=== PATIENT | female | born 1990 | race Caucasian/White ===

== ENCOUNTER 2018-09-17 13:48 | Emergency (ER) | payer MEDICAID, OTHER ==
[~2018-09-17] VITALS: Ht 167.6 cm; Wt 72.7 kg
[~2018-09-17 13:48] MED LIST: CLON-527 PO; LAMO25TA62 PO; RISP0.5T3 PO
[2018-09-17 14:09] VITALS: BP 127/95
[2018-09-17] MEDS ORDERED: buprenorphine/naloxone 2-0.5mg sublingual tablet SL STA (15:16)
== END 2018-09-17 15:37 | disposition home or self-care (01) ==
LOC: ER 13:48
DX: F11.23 Opioid dependence with withdrawal (principal); Z76.0 Encounter for issue of repeat prescription; F12.90 Cannabis use, unspecified, uncomplicated; F15.90 Other stimulant use, unspecified, uncomplicated; Z79.899 Other long term (current) drug therapy
CPT/HCPCS: 99282; 99283

== ENCOUNTER 2018-10-08 17:07 | Emergency (ER) | payer MEDICAID ==
[~2018-10-08] VITALS: Ht 167.6 cm; Wt 75.0 kg
[2018-10-08] MEDS ORDERED: buprenorphine/naloxone 2-0.5mg sublingual tablet SL STA (18:08)
[2018-10-08] MEDS ORDERED: IBUP-1984 PO (19:29)
[2018-10-08] MEDS ORDERED: ONDA4TAB9 SL (19:29)
[2018-10-08] MEDS ORDERED: metoclopramide 10mg tablet PO ONE (19:30)
[2018-10-08] MEDS ORDERED: ibuprofen tablet 400 MG TABLET PO ONE (19:30)
[2018-10-08] MEDS ORDERED: cloNIDine 0.1 mg tablet PO ONE (19:30)
[2018-10-08 19:44] VITALS: BP 123/87
== END 2018-10-08 20:02 | disposition home or self-care (01) ==
LOC: ER 17:09
DX: F11.23 Opioid dependence with withdrawal (principal); F12.90 Cannabis use, unspecified, uncomplicated; F15.90 Other stimulant use, unspecified, uncomplicated; Z79.899 Other long term (current) drug therapy
CPT/HCPCS: 99284; J8597

== ENCOUNTER 2023-01-27 18:41 | Emergency (ER) | payer SELFPAY ==
[~2023-01-27] VITALS: Ht 167.6 cm; Wt 68.2 kg
[~2023-01-27 18:41] MED LIST changes: -RISP0.5T3 PO; +RISP0.5T65 PO
[2023-01-27 18:56] VITALS: BP 128/95
[2023-01-27] MEDS: ondansetron 4mg rapidly disintigrating tab PO ONE (20:02)
[2023-01-27] MEDS: methadone 10mg tablet PO ONE (20:03)
== END 2023-01-27 20:08 | disposition home or self-care (01) ==
LOC: ER 18:42
DX: F11.23 Opioid dependence with withdrawal (principal); I50.9 Heart failure, unspecified; F17.200 Nicotine dependence, unspecified, uncomplicated; Z79.899 Other long term (current) drug therapy
CPT/HCPCS: 99283

== ENCOUNTER 2024-05-22 20:59 | Emergency (ER) | payer MEDICAID ==
[~2024-05-22] VITALS: Ht 167.6 cm; Wt 86.8 kg
[~2024-05-22 20:59] MED LIST changes: -RISP0.5T65 PO; +RISP0.5T80 PO
[2024-05-22 21:04] VITALS: TEMP 98.1
[2024-05-22 21:49] LABS: BASOPHILS % (AUTO) 0.7 % (0-1); EOSINOPHILS # (AUTO) 0.1 X10'3 (0-0.9); EOSINOPHILS % (AUTO) 1.1 % (0-6); HEMATOCRIT 45.8 % (35.0-45.0); HEMOGLOBIN 15.5 g/dl (12.0-16.0); LYMPHOCYTES % (AUTO) 35.6 % (21-51); MEAN CORPUSCULAR HEMOGLOBIN 32.3 PG (27.0-31.0); MEAN CORPUSCULAR HGB CONC 33.7 g/dL (33.0-36.5); MEAN CORPUSCULAR VOLUME 95.7 FL (78-98); MEAN PLATELET VOLUME 8.1 FL (7.4-10.4); MONOCYTES # (AUTO) 0.5 X10'3 (0-0.9); NEUTROPHILS % (AUTO) 53.6 % (42-75); PLATELET COUNT 172 X10'3 (140-440); RED BLOOD COUNT 4.79 X10'6 (4.20-5.60); RED CELL DISTRIBUTION WIDTH 15.3 % (11.5-14.5); WHITE BLOOD COUNT 5.6 X10'3 (4.5-11.0)
[2024-05-22 22:04] LABS: ALBUMIN 3.5 G/DL (3.4-5.0); ANION GAP 6 (8-16); BLOOD UREA NITROGEN 35 MG/DL (7-18); CALCIUM 9.5 MG/DL (8.5-10.1); CHLORIDE 95 MMOL/L (99-107); CREATININE 1.06 MG/DL (0.40-0.90); GLUCOSE 140 MG/DL (70-104); MAGNESIUM 1.9 MG/DL (1.5-2.4); POTASSIUM 3.2 MMOL/L (3.5-5.1); PRO BRAIN NATRIURETIC PEPTIDE 2976 PG/ML (0-125); SODIUM 130 MMOL/L (135-145); TOTAL CARBON DIOXIDE 29.3 MMOL/L (24-32); eCRCL 69 ML/MIN; eGFR 59 ML/MIN
[2024-05-22 22:06] VITALS: BP 105/64; PULSE 81; RESP 15; O2SAT 93
== END 2024-05-22 22:08 | disposition home or self-care (01) ==
LOC: ER 20:59
DX: T40.3X1A Poisoning by methadone, accidental (unintentional), initial encounter (principal); I50.9 Heart failure, unspecified; Z79.899 Other long term (current) drug therapy; Y92.89 Other specified places as the place of occurrence of the external cause
CPT/HCPCS: 36415; 80048; 83735; 83880; 85025; 93005; 99284

== ENCOUNTER 2024-06-21 21:30 | Emergency (ER) | payer MEDICAID ==
[~2024-06-21] VITALS: Ht 167.6 cm; Wt 86.4 kg
[~2024-06-21 21:30] MED LIST changes: +GLECAPREVIR PO SCH; +PIBRENTASVIR PO SCH
[2024-06-21 21:55] LABS: BASOPHILS # (AUTO) 0.1 X10'3 (0-0.2); BASOPHILS % (AUTO) 1.4 % (0-1); EOSINOPHILS # (AUTO) 0.1 X10'3 (0-0.9); EOSINOPHILS % (AUTO) 0.9 % (0-6); LYMPHOCYTES # (AUTO) 1.4 X10'3 (1.1-4.8); LYMPHOCYTES % (AUTO) 24.9 % (21-51); MEAN CORPUSCULAR HEMOGLOBIN 32.9 PG (27.0-31.0); MEAN CORPUSCULAR VOLUME 96.7 FL (78-98); MEAN PLATELET VOLUME 8.2 FL (7.4-10.4); MONOCYTES # (AUTO) 0.4 X10'3 (0-0.9); MONOCYTES % (AUTO) 7.6 % (2-12); NEUTROPHILS # (AUTO) 3.6 X10'3 (1.8-7.7); NEUTROPHILS % (AUTO) 65.2 % (42-75); PLATELET COUNT 172 X10'3 (140-440); RED BLOOD COUNT 4.55 X10'6 (4.20-5.60); RED CELL DISTRIBUTION WIDTH 15.2 % (11.5-14.5); WHITE BLOOD COUNT 5.6 X10'3 (4.5-11.0)
[2024-06-21 22:05] LABS: ALANINE AMINOTRANSFERASE 37 U/L (12-78); ALBUMIN 3.6 G/DL (3.4-5.0); ALBUMIN/GLOBULIN RATIO 0.8 (1.1-1.5); ALKALINE PHOSPHATASE 185 IU/L (46-116); ANION GAP 9 (8-16); ASPARTATE AMINO TRANSFERASE 22 U/L (10-37); BILIRUBIN,TOTAL 1.3 MG/DL (0.1-1.0); BLOOD UREA NITROGEN 30 MG/DL (7-18); BUN/CREATININE RATIO 29.7 (10.0-20.0); CALCIUM 9.4 MG/DL (8.5-10.1); CHLORIDE 100 MMOL/L (99-107); CREATININE 1.01 MG/DL (0.40-0.90); GLUCOSE 90 MG/DL (70-104); SODIUM 136 MMOL/L (135-145); TOTAL CARBON DIOXIDE 27.3 MMOL/L (24-32); eCRCL 73 ML/MIN; eGFR 62 ML/MIN
[2024-06-21 22:13] LABS: PRO BRAIN NATRIURETIC PEPTIDE 1827 PG/ML (0-125)
--- NOTE | 2024-06-22 04:17 | NUR ---
[facility] MED SCREENING COMPLETE. NO OPEN BEDS UNTIL AFTER SHIFT CHANGE.
[2024-06-22] MEDS ORDERED: SILD20TA PO (09:56)
[2024-06-22] MEDS ORDERED: ZAR2.5T PO (09:56)
[2024-06-22] MEDS ORDERED: SALM50DI2 INH (09:56)
[2024-06-22] MEDS ORDERED: BUME1TAB34 PO (09:56)
[2024-06-22] MEDS ORDERED: SPIR50TA5 PO (09:56)
[2024-06-22] MEDS ORDERED: POTA-366 PO (09:56)
[2024-06-22] MEDS ORDERED: METH10OR11 PO (09:56)
[2024-06-22] MEDS ORDERED: ALB0.5UD NEB (09:56)
[2024-06-22] MEDS ORDERED: NALO4SPR5 (09:56)
[2024-06-22] MEDS ORDERED: GLEC1TAB PO (09:56)
[2024-06-22] MEDS ORDERED: EMPA10TA PO (09:56)
[2024-06-22] MEDS ORDERED: DIGO125T PO (09:56)
[2024-06-22] MEDS: methadone 10mg tablet PO SCH (12:05)
[2024-06-22] MEDS: EMPAGLIFLOZIN 10 MG TABLET PO SCH (12:06)
[2024-06-22] MEDS: digoxin 125mcg (0.125mg) tablet PO SCH (12:06)
--- NOTE | 2024-06-22 12:14 | NUR ---
CALLED PHARMACY TO DELIVER THE MEDS FOR PT.
[2024-06-22] MEDS: bumetanide 1mg tablet PO SCH (12:26)
[2024-06-22] MEDS: sildenafil citrate 20mg tablet PO SCH (12:26)
[2024-06-22] MEDS: spironolactone 50 MG tablet PO SCH (12:27)
[2024-06-22] MEDS: albuterol 2.5 MG/3 ML nebule NEB SCH (12:52)
[2024-06-22 12:56] VITALS: PULSE 78; RESP 20; O2SAT 95
[2024-06-22 13:02] VITALS: PULSE 78; RESP 20; O2SAT 96
--- NOTE | 2024-06-22 15:06 | NUR ---
INFORMED DR LAY THAT CHAPLAIN RESIDENT HAS RECECVIVED CALL FROM [facility] AND SPOKE TO TANIA WHO HAS PROVIDED NO OF THE ATTENDING MD WHO CAN BE CONTACTED FOR ANY RECOMMEDENATION NEEDED FOR PATIENT CARE . STATED NOTHING NEEDED AT THIS TIME PT IS STABLE AND RECEVIVED HER MEDS.
--- NOTE | 2024-06-22 16:17 | NUR ---
Paged RT for neb tx.
[2024-06-22 16:43] VITALS: PULSE 85; PULSE 88; RESP 14; RESP 16; O2SAT 100; O2SAT 98
[2024-06-22 16:56] VITALS: TEMP 97.7
--- NOTE | 2024-06-22 18:57 | NUR ---
VERBAL ORDER GHIVEN BY DR. MORELAND FOR PATIENT HOME MEDICATION OF GLECAPREVIR/PIBRENTASVIR 100/40MG X 3 UNITS TO BE GIVEN ONE TIME ON 06/22 AT 1999.
--- NOTE | 2024-06-22 19:24 | NUR ---
REPORT ATTEMPTED TO [facility], NURSE UNAVAILABLE AT THIS TIME AND WILL CALL BACK.
[2024-06-22] MEDS: SALMETEROL XINAFOATE IH SCH (19:29)
[2024-06-22] MEDS: potassium Cl 20 mEq SR tablet PO SCH (19:30)
--- NOTE | 2024-06-22 19:35 | NUR ---
VERBAL ORDER GIVEN BY DR. MORELAND FOR 20MG PO SILDENAFIL TO BE GIVEN ONCE FOR NOW.
[2024-06-22] MEDS: PIBRENTASVIR PO SCH (19:38)
[2024-06-22] MEDS: GLECAPREVIR PO SCH (19:38)
[2024-06-22] MEDS: sildenafil citrate 20mg tablet PO ONE (19:43)
[2024-06-22 19:55] VITALS: BP 116/75; PULSE 88; RESP 15; O2SAT 96
[2024-06-22] MEDS ORDERED: GLECAPREVIR PO SCH (20:00)
[2024-06-22] MEDS ORDERED: PIBRENTASVIR PO SCH (20:00)
[2024-06-23] MEDS ORDERED: metolazone 2.5mg tablet PO SCH (08:00)
== END 2024-06-22 20:00 | disposition hospice, inpatient (51) ==
LOC: ER 21:30
DX: I50.9 Heart failure, unspecified (principal); I42.8 Other cardiomyopathies; Z79.899 Other long term (current) drug therapy
CPT/HCPCS: 36415; 71045; 80053; 83880; 84484; 85025; 93005; 94640; 94760; 99285; A4615

== ENCOUNTER 2024-10-01 10:57 | Emergency (ER) | payer MEDICAID ==
[~2024-10-01] VITALS: Ht 165.1 cm; Wt 88.4 kg
[~2024-10-01 10:57] MED LIST changes: +ALB0.5UD NEB; +BUME1TAB34 PO; -CLON-527 PO; +DIGO125T PO; +EMPA10TA PO; +GLEC1TAB PO; -GLECAPREVIR PO SCH; -LAMO25TA62 PO; +METH10OR11 PO; +NALO4SPR22; -PIBRENTASVIR PO SCH; +POTA-366 PO; -RISP0.5T80 PO; +SALM50DI2 INH; +SILD20TA PO; +SPIR50TA5 PO; +ZAR2.5T PO
[2024-10-01 11:00] VITALS: BP 136/85; PULSE 71; RESP 16; TEMP 98.8; O2SAT 97
[2024-10-01] MEDS: methadone 10mg tablet PO ONE (11:32)
== END 2024-10-01 11:36 | disposition home or self-care (01) ==
LOC: ER 10:57
DX: F11.20 Opioid dependence, uncomplicated (principal); I50.9 Heart failure, unspecified; Z79.899 Other long term (current) drug therapy; Z76.0 Encounter for issue of repeat prescription
CPT/HCPCS: 99283

== ENCOUNTER 2024-12-09 19:39 | Emergency (ER) | payer MEDICAID ==
[~2024-12-09] VITALS: Ht 165.1 cm; Wt 90.0 kg
[2024-12-09 19:47] VITALS: TEMP 98.8
[2024-12-09 20:36] LABS: BASOPHILS % (AUTO) 0.8 % (0-1); EOSINOPHILS # (AUTO) 0.2 X10'3 (0-0.9); EOSINOPHILS % (AUTO) 4.8 % (0-6); HEMOGLOBIN 14.2 g/dl (12.0-16.0); LYMPHOCYTES # (AUTO) 0.6 X10'3 (1.1-4.8); LYMPHOCYTES % (AUTO) 17.6 % (21-51); MEAN CORPUSCULAR HEMOGLOBIN 33.7 PG (27.0-31.0); MEAN CORPUSCULAR HGB CONC 34.5 g/dL (33.0-36.5); MEAN CORPUSCULAR VOLUME 97.7 FL (78-98); MEAN PLATELET VOLUME 8.7 FL (7.4-10.4); MONOCYTES # (AUTO) 0.2 X10'3 (0-0.9); MONOCYTES % (AUTO) 6.3 % (2-12); NEUTROPHILS # (AUTO) 2.5 X10'3 (1.8-7.7); NEUTROPHILS % (AUTO) 70.5 % (42-75); PLATELET COUNT 230 X10'3 (140-440); RED CELL DISTRIBUTION WIDTH 13.3 % (11.5-14.5); WHITE BLOOD COUNT 3.6 X10'3 (4.5-11.0)
[2024-12-09 20:59] LABS: ALANINE AMINOTRANSFERASE 32 U/L (12-78); ALBUMIN 4.6 G/DL (3.4-5.0); ALBUMIN/GLOBULIN RATIO 1.3 (1.1-1.5); ALKALINE PHOSPHATASE 84 IU/L (46-116); ANION GAP 8 (8-16); ASPARTATE AMINO TRANSFERASE 24 U/L (10-37); BILIRUBIN,TOTAL 0.7 MG/DL (0.1-1.0); BLOOD UREA NITROGEN 36 MG/DL (7-18); BUN/CREATININE RATIO 25.9 (10.0-20.0); CALCIUM 9.5 MG/DL (8.5-10.1); CHLORIDE 102 MMOL/L (99-107); CREATININE 1.39 MG/DL (0.40-0.90); GLUCOSE 110 MG/DL (70-104); POTASSIUM 4.8 MMOL/L (3.5-5.1); SODIUM 138 MMOL/L (135-145); TOTAL PROTEIN 8.2 G/DL (6.4-8.2); eCRCL 51 ML/MIN; eGFR 43 ML/MIN
[2024-12-09] MEDS: ondansetron 4mg rapidly disintigrating tab PO ONE (20:59)
[2024-12-09 21:10] LABS: PRO BRAIN NATRIURETIC PEPTIDE 655 PG/ML (0-125)
[2024-12-09] MEDS ORDERED: TIOT18CA3 INH (21:20)
[2024-12-09] MEDS ORDERED: PRAV20TA4 PO (21:20)
[2024-12-09] MEDS ORDERED: MECO10005 PO (21:20)
[2024-12-09] MEDS ORDERED: PROP10TA10 PO (21:20)
[2024-12-09] MEDS ORDERED: CHOL10006 PO (21:20)
[2024-12-09] MEDS ORDERED: ALEN70TA19 PO (21:20)
[2024-12-09] MEDS ORDERED: MAGN400T39 PO (21:20)
[2024-12-09] MEDS ORDERED: COLC0.6C3 PO (21:20)
[2024-12-09] MEDS ORDERED: CHOL20004 PO (21:20)
[2024-12-09] MEDS ORDERED: VALG450T13 PO (21:20)
[2024-12-09] MEDS ORDERED: MYCO250C46 PO (21:20)
[2024-12-09] MEDS ORDERED: LOSA-415 PO (21:20)
[2024-12-09] MEDS ORDERED: OMEP20TA23 PO (21:20)
[2024-12-09] MEDS ORDERED: CALC300T4 PO (21:20)
[2024-12-09] MEDS ORDERED: PRED5TAB PO (21:20)
[2024-12-09] MEDS ORDERED: ASPI-1071 PO (21:20)
[2024-12-09] MEDS ORDERED: SULF1TAB49 PO (21:20)
[2024-12-09] MEDS ORDERED: MULT-1249 PO (21:20)
[2024-12-09] MEDS ORDERED: ISAV186C2 PO (21:20)
[2024-12-09] MEDS ORDERED: TACR1CAP2 PO (21:20)
[2024-12-09 21:49] VITALS: BP 100/69; PULSE 69; RESP 14; O2SAT 94
== END 2024-12-09 21:52 | disposition home or self-care (01) ==
LOC: ER 19:40
DX: R07.89 Other chest pain (principal); F41.9 Anxiety disorder, unspecified; Z79.899 Other long term (current) drug therapy
CPT/HCPCS: 71045; 80053; 83880; 84484; 85025; 93005; 99285

== ENCOUNTER 2025-03-08 20:08 | Emergency (ER) | payer MEDICAID ==
[~2025-03-08] VITALS: Ht 162.6 cm; Wt 74.5 kg
[~2025-03-08 20:08] MED LIST changes: +ALEN70TA19 PO; +ASPI-1071 PO; +CALC300T4 PO; +CHOL10006 PO; +CHOL20004 PO; +COLC0.6C3 PO; -DIGO125T PO; -EMPA10TA PO; -GLEC1TAB PO; +ISAV186C2 PO; +LOSA-415 PO; +MAGN400T39 PO; +MECO10005 PO; +MULT-1249 PO; +MYCO250C46 PO; +OMEP20TA23 PO; +PRAV20TA4 PO; +PRED5TAB PO; +PROP10TA10 PO; -SILD20TA PO; -SPIR50TA5 PO; +SULF1TAB49 PO; +TACR1CAP2 PO; +TIOT18CA3 INH; +VALG450T13 PO
[2025-03-08 20:29] VITALS: TEMP 96.8
[2025-03-08 21:09] LABS: BASOPHILS % (AUTO) 0.7 % (0-1); EOSINOPHILS % (AUTO) 0.6 % (0-6); HEMOGLOBIN 11.5 g/dl (12.0-16.0); LYMPHOCYTES # (AUTO) 0.6 X10'3 (1.1-4.8); LYMPHOCYTES % (AUTO) 13.4 % (21-51); MEAN CORPUSCULAR HEMOGLOBIN 34.1 PG (27.0-31.0); MEAN CORPUSCULAR HGB CONC 34.8 g/dL (33.0-36.5); MEAN CORPUSCULAR VOLUME 97.9 FL (78-98); MEAN PLATELET VOLUME 8.5 FL (7.4-10.4); MONOCYTES # (AUTO) 0.3 X10'3 (0-0.9); MONOCYTES % (AUTO) 6.9 % (2-12); NEUTROPHILS # (AUTO) 3.3 X10'3 (1.8-7.7); NEUTROPHILS % (AUTO) 78.4 % (42-75); PLATELET COUNT 179 X10'3 (140-440); RED BLOOD COUNT 3.37 X10'6 (4.20-5.60); RED CELL DISTRIBUTION WIDTH 15.6 % (11.5-14.5); WHITE BLOOD COUNT 4.3 X10'3 (4.5-11.0)
[2025-03-08 21:24] LABS: ALBUMIN 3.7 G/DL (3.4-5.0); ANION GAP 9 (8-16); BLOOD UREA NITROGEN 18 MG/DL (7-18); BUN/CREATININE RATIO 15.4 (10.0-20.0); CALCIUM 8.9 MG/DL (8.5-10.1); CHLORIDE 106 MMOL/L (99-107); CREATININE 1.17 MG/DL (0.40-0.90); GLUCOSE 103 MG/DL (70-104); POTASSIUM 4.3 MMOL/L (3.5-5.1); SODIUM 141 MMOL/L (135-145); TOTAL CARBON DIOXIDE 26.5 MMOL/L (24-32); eCRCL 58 ML/MIN; eGFR 53 ML/MIN
--- NOTE | 2025-03-08 21:30 | RADIOLOGY REPORT ---
Clinical History sepsis Comparison None Without Contrast KALE BLOUNT, [id number] Technique: Single view PA upright chest x-ray Findings: The lungs are unremarkable. No pleural abnormality. Surgical changes related to previous sternotomy. The cardiomediastinal silhouette is otherwise unrem arkable for an AP view. No acute osseous abnormality. The imaged part of the upper abdomen is unremarkable. Impression: No evidence of acute cardiopulmonary disease This report was electronically signed by Gene Torres MD on 03/08/2025 9:26:41 PM.
[2025-03-08 23:46] LABS: BILIRUBIN,URINE NEGATIVE (Neg); CLARITY,URINE CLEAR (Clear); COLOR,URINE YELLOW (Yellow); GLUCOSE, URINE NEGATIVE (Neg); KETONES,URINE TRACE mg/dl (Neg); LEUKOCYTE ESTERASE ,URINE NEGATIVE (Neg); NITRITES, URINE NEGATIVE (Neg); OCCULT BLOOD,URINE NEGATIVE (Neg); PROTEIN,URINE NEGATIVE (Neg); UROBILINOGEN,URINE 0.2 E.U/dL (0.2-1.0)
[2025-03-08 23:47] LABS: UA COLLECTION TYPE CLN CATCH MIDSTREAM
--- NOTE | 2025-03-09 01:06 | Physician Documentation ---
History of Present Illness ~ Chief Complaint: Wound Stated Complaint: LEG PAIN Time Seen by MD: 00:26 Primary Medical Doctor: raheem baugh HPI Patient presents to the emergency room with concerns for infection to her right leg. She was seen by her primary care doctor a few days ago where a needle aspiration was performed with no purulence. Since that time the wound itself has possibly improved or unchanged but there begins to be some surrounding erythema with warmness to touch. Tetanus reported to be up-to-date. No fevers Tetanus within 5 years?: No Medication Reconciliation Allergies: Coded Allergies: No Known Allergies (Unverified , 03/08/25) Scheduled Albuterol Sulfate Nebs* (Proventil Nebs*), 1 VIAL NEB Q4H, (Reported) Alendronate Sodium (Fosamax), 1 TAB PO Q7D, (Reported) Aspirin (Ecotrin*), 1 TAB PO DAILY, (Reported) Bumetanide (Bumetanide), 4 TAB PO BID, (Reported) Calcium Carbonate* (Tums*), 1 TAB PO DAILY, (Reported) Cholecalciferol (Vitamin D), 1 CAP PO DAILY, (Reported) Cholecalciferol (Vitamin D), 2 TAB PO DAILY, (Reported) Colchicine (Colchicine), 0.5 CAP PO DAILY, (Reported) Isavuconazonium Sulfate (Cresemba), 2 TAB PO QAM, (Reported) Losartan Potassium* (Cozaar*), 1 TAB PO QAM, (Reported) Magnesium Oxide (Magnesium), 2 TAB PO TID, (Reported) Mecobalamin (B12 Active), 1 TAB PO DAILY, (Reported) Methadone Hcl (Methadone), 80 MG PO DAILY, (Reported) Multivitamin (Multivitamin), 1 TAB PO DAILY, (Reported) Mycophenolate Mofetil (Cellcept), 3 CAP PO Q12H, (Reported) Omeprazole Magnesium (Prilosec Otc), 1 TAB PO DAILY, (Reported) Potassium Chloride (Potassium Chloride), 2 TAB PO QAM, (Reported) Pravastatin Sodium (Pravastatin Sodium), 1 TAB PO DAILY, (Reported) Prednisone* (Prednisone*), 2 TAB PO DAILY, (Reported) Propranolol Hcl* (Inderal*), 1 TAB PO TID, (Reported) Salmeterol Xinafoate* (Serevent Diskus*), 1 PUFFS INH Q12H, (Reported) Sulfamethoxazole/Trimethoprim (Bactrim Ds Tablet), 1 TAB PO MWF, (Reported) Tacrolimus (Prograf), 1.5 CAP PO Q12H, (Reported) Tiotropium [place] (Spiriva), 1 CAP INH DAILY, (Reported) Valganciclovir Hcl (Valcyte), 1 TAB PO Q12H, (Reported) Scheduled PRN Metolazone (ZAROXOLYN tablet), 1 TAB PO DAILY PRN for Per Protocol, (Reported) Naloxone HCl (Naloxone HCl), PRN PRN for resp rate < 8/min or SBP < 90, (Reported) Past Medical History Past Medical History: No Pertinent History, Congestive Heart Failure, Endocarditis, Hepatitis C Past Surgical History: no surgical history Alcohol Use: None Drug Use: none Occupation: employed Review of Systems ROS All review of systems negative except as per HPI Physical Exam Vital Signs: Temperature: 96.8, Source: Temporal, Heart Rate: 72, Respiratory Rate: 19, BP: 134/77, Pulse Oximetry: 97, Weight: 74.500 Oxygen Flow Rate: 0 Physical Exam General: Patient is awake, alert, oriented x4 in no acute distress and well appearing.~ Head: Normocephalic and atraumatic. Eyes: Conjunctival normal. EOMI. PERRL. ENT: Mucous membranes moist. Neck: Supple, trachea is midline. Chest: Clear to auscultation bilaterally without rales, rhonchi, or wheezes. There is no accessory muscle use or retractions. Cardiac: RRR without murmurs, gallops, or rubs. Abd: Soft, nondistended, nontender, with normoactive bowel sounds. No guarding, rebound, or rigidity. Extremities: 3 x 3 cm fluctuant lesion on medial aspect of patient's right ankle with surrounding cellulitis measuring 10 cm by 10 cm Procedures Procedures Incision and drainage: . Status post informed verbal consent patient was sterilely cleaned and draped a 11. Blade utilized perform a 1 cm incision into area of concern with no purulent drainage. Patient was anesthetized with 0.5 cc of lidocaine with epinephrine. Patient tolerated procedure well without complication. Total time of procedure 5 minutes Progress Results/Orders Results/Orders Vital Signs 03/08/25 03/08/25 20:29 23:54 Temp 96.8 Pulse 83 72 Resp 15 19 B/P (MAP) 120/68 134/77 (96) Pulse Ox 96 97 O2 Flow Rate 0 Laboratory Tests Test 03/08/25 20:41 03/08/25 23:39 White Blood Count 4.3 L Red Blood Count 3.37 L Hemoglobin 11.5 L Hematocrit 33.0 L Mean Corpuscular Volume 97.9 Mean Corpuscular Hemoglobin 34.1 H Mean Corpuscular Hemoglobin Concent 34.8 Red Cell Distribution Width 15.6 H Platelet Count 179 Mean Platelet Volume 8.5 Neutrophils (%) (Auto) 78.4 H Lymphocytes (%) (Auto) 13.4 L Monocytes (%) (Auto) 6.9 Eosinophils (%) (Auto) 0.6 Basophils (%) (Auto) 0.7 Neutrophils # (Auto) 3.3 Lymphocytes # (Auto) 0.6 L Monocytes # (Auto) 0.3 Eosinophils # (Auto) 0.0 Basophils # (Auto) 0.0 CBC Comment Sodium Level 141 Potassium Level 4.3 Chloride Level 106 Carbon Dioxide Level 26.5 Anion Gap 9 Blood Urea Nitrogen 18 Creatinine 1.17 H Estimated GFR/1.73 m2 53 BUN/Creatinine Ratio 15.4 Glucose Level 103 Lactic Acid Level 0.8 Calcium Level 8.9 Albumin 3.7 Procalcitonin < 0.05 Chemistry Comments Urine Specimen Description Cln catch midstream Urine Color Yellow Urine Clarity Clear Urine pH 6.0 Urine Specific [place] 1.020 Urine Protein Negative Urine Glucose (UA) Negative Urine Ketones Trace H Urine Occult Blood Negative Urine Nitrite Negative Urine Bilirubin Negative Urine Urobilinogen 0.2 Urine Leukocyte Esterase Negative Urine Culture Indicated Not ind Volume Urine Centrifuged 10 ml Urine Comment Microbiology Date/Time Source Procedure Growth Status 03/08/25 20:41 Blood Arm Right Blood Culture - Preliminary NEGATIVE (LESS THAN 24 HOURS) Resulted Medical Decision Making Findings Patient presents to the emergency room with wound to leg as per HPI. Differentials include but are not limited to abscess, cellulitis, DVT, hematoma. Symptoms inconsistent with DVT and he had not feel she requires an ultrasound. Incision and drainage failed to produce purulent drainage. [place] cellulitis noted him and we will treat her as such Departure Disposition: 01 HOME / SELF CARE / HOMELESS Impression: Primary Impression: Wound cellulitis Condition: Stable Discharge Instructions: Cellulitis, Adult, [id number] Additional Instructions: Finish all the antibiotics. Return for worsening of symptoms Referrals: NO PRIMARY CARE PROVIDER (PCP) Prescriptions Cephalexin*Monohydrate* (Keflex*) 500 Mg Capsule 1 CAP PO Q8H for 10 Days, #30 CAP Prov: VICTOR HUGO VARGAS MD 03/09/25 Education Educated: Patient Educated regarding: diagnosis, treatment, need for follow up Signature Scribe Signature: No scribe Attestation: The note accurately reflects work and decisions made by me.Victor Hugo Vargas MD 03/09/25 01:25 VICTOR HUGO VARGAS MD March 09, 2025 01:06
[2025-03-09] MEDS ORDERED: CEPH-585 PO (01:25)
[2025-03-09] MEDS: bacitracin 15gm ointment TP ONE (01:56)
[2025-03-09] MEDS: cephalexin 250mg capsule PO ONE (01:57)
[2025-03-09 02:05] VITALS: BP 132/88; PULSE 74; RESP 18; O2SAT 98
== END 2025-03-09 02:02 | disposition home or self-care (01) ==
LOC: ER 20:09
DX: L03.115 Cellulitis of right lower limb (principal)
CPT/HCPCS: 10060; 36415; 71045; 80048; 81003; 83605; 84145; 85025; 87040; 99284; A6407; A6449

== ENCOUNTER 2025-03-19 10:24 | Emergency (ER) | payer MEDICAID ==
[~2025-03-19] VITALS: Ht 165.1 cm; Wt 87.6 kg
[~2025-03-19 10:24] MED LIST changes: +CEPH-585 PO
--- NOTE | 2025-03-19 14:51 | ELECTROCARDIOGRAPH REPORT ---
[facility] Test Date: 2025-03-19 Test Time: 14:49:23 Pat Name: KALE BLOUNT Department: [facility]- Patient ID: [facility]-[id number] Room: Gender: F Grinder Set Up Operator External: : 1990 Requested By: HAKEEM PUCKETT Order Number: [id number] Reading MD: Dr. Benji De La Paz Measurements Intervals [place] Rate: 68 P: 49 UT: 156 QRS: 51 QRSD: 97 T: 50 QT: 484 QTc: 515 Interpretive Statements Sinus rhythm Borderline T abnormalities, anterior leads Prolonged QT interval Electronically Signed On 03-25-2025 13:45:[address] Benji De La Paz Please click the below link to view image of tracing.
--- NOTE | 2025-03-19 15:14 | RADIOLOGY REPORT ---
CHEST RADIOGRAPH Indication: sepsis Technique: Single frontal view of the chest was obtained Comparison: DI CHEST,SINGLE VIEW on DOS: 03/08/25, DI CHEST,SINGLE VIEW on DOS: 12/09/24, DI CHEST,SING LE VIEW on DOS: 06/21/24 FINDINGS: Lines and Tubes: None Lungs: No focal consolidation. Mild elevation of the right hemidiaphragm. Midline sternotomy wires ar e noted. Pleura: No effusion. No pneumothorax. Cardiomediastinal contours: Unremarkable Bones: No acute osseous abnormality. IMPRESSION: No acute cardiopulmonary disease.
[2025-03-19 15:18] LABS: BASOPHILS % (AUTO) 0.7 % (0-1); HEMATOCRIT 33.6 % (35.0-45.0); HEMOGLOBIN 11.5 g/dl (12.0-16.0); LYMPHOCYTES # (AUTO) 0.4 X10'3 (1.1-4.8); MEAN CORPUSCULAR HEMOGLOBIN 33.4 PG (27.0-31.0); MEAN CORPUSCULAR HGB CONC 34.4 g/dL (33.0-36.5); MEAN CORPUSCULAR VOLUME 97.2 FL (78-98); MEAN PLATELET VOLUME 8.3 FL (7.4-10.4); MONOCYTES # (AUTO) 0.2 X10'3 (0-0.9); MONOCYTES % (AUTO) 7.6 % (2-12); NEUTROPHILS # (AUTO) 2.4 X10'3 (1.8-7.7); NEUTROPHILS % (AUTO) 76.7 % (42-75); PLATELET COUNT 200 X10'3 (140-440); RED BLOOD COUNT 3.46 X10'6 (4.20-5.60); RED CELL DISTRIBUTION WIDTH 14.6 % (11.5-14.5); WHITE BLOOD COUNT 3.2 X10'3 (4.5-11.0)
[2025-03-19 15:31] LABS: ALANINE AMINOTRANSFERASE 30 U/L (12-78); ALBUMIN 3.5 G/DL (3.4-5.0); ALKALINE PHOSPHATASE 169 IU/L (46-116); ANION GAP 6 (8-16); ASPARTATE AMINO TRANSFERASE 26 U/L (10-37); BILIRUBIN,TOTAL 0.6 MG/DL (0.1-1.0); BLOOD UREA NITROGEN 20 MG/DL (7-18); CHLORIDE 103 MMOL/L (99-107); CREATININE 1.43 MG/DL (0.40-0.90); GLUCOSE 96 MG/DL (70-104); HCG SERUM QL NEGATIVE; POTASSIUM 4.7 MMOL/L (3.5-5.1); SODIUM 138 MMOL/L (135-145); TOTAL PROTEIN 7.1 G/DL (6.4-8.2); eCRCL 49 ML/MIN; eGFR 42 ML/MIN
[2025-03-19] MEDS ORDERED: iohexol 300mg/ml 100ml inj. ONE (15:33)
[2025-03-19 16:06] LABS: APTT 27 SECONDS (22-32); INR 1.1 INR; PROTHROMBIN TIME 10.9 SECONDS (9.0-12.0)
[2025-03-19 16:48] LABS: BILIRUBIN,URINE NEGATIVE (Neg); CLARITY,URINE CLEAR (Clear); COLOR,URINE YELLOW (Yellow); GLUCOSE, URINE NEGATIVE (Neg); KETONES,URINE NEGATIVE (Neg); LEUKOCYTE ESTERASE ,URINE NEGATIVE (Neg); NITRITES, URINE NEGATIVE (Neg); OCCULT BLOOD,URINE NEGATIVE (Neg); PH,URINE 5.5 (4.8-8.0); PROTEIN,URINE NEGATIVE (Neg); UA COLLECTION TYPE CLN CATCH MIDSTREAM; UROBILINOGEN,URINE 0.2 E.U/dL (0.2-1.0)
--- NOTE | 2025-03-19 18:52 | RADIOLOGY REPORT ---
INDICATION: cellulitis lower leg COMPARISON: None TECHNIQUE: CT of the right lower extremity was performed with contrast. Volume transverse images were obtained and reconstructed in multiple planes using bone and soft tissue algorithms. Radiation Dose Information: CT Dose: CTDI volume is 7.6 mGy. Dose-length product is 358 mGy*cm 100 mL of Omni 300 was injected. FINDINGS: The alignment is normal. The joint spaces are normal. There is no fracture, dislocation or aggressive osseous lesion. There is no joint effusion. Superficial fat stranding and skin thickening is seen in the posterior lower leg suggestive of cellul itis. No discernible abscess identified. IMPRESSION: 1. Superficial fat stranding and skin thickening is seen in the posterior lower leg suggestive of chris lulitis. No discernible abscess identified. 2. No acute fracture or dislocation. 3. All CT scans at this medical facility are performed using dose modulation techniques as appropriat e to a performed exam including the following: Automated exposure control was utilized; adjustment of the MA and/or KV according to patient size; and use of iterative reconstruction technique.
--- NOTE | 2025-03-19 19:31 | Physician Documentation ---
History of Present Illness ~ Chief Complaint: Leg Pain Stated Complaint: CELLULITIS R LEG Time Seen by MD: 13:23 Primary Medical Doctor: raheem baugh Mode of Arrival: POV HPI 4-year-old female reports a chief complaint of right leg pain. Patient has a history of a heart replacement within last six months. Patient is currently not on blood thinners. Patient has sustained a hematoma to her right lower extremity and had a I and D performed of it is within last month. Patient is presenting today with increased swelling and mild pain to the right leg. Pain isn't into the calf patient states that the pain is superficial and is located to the distal 3rd over the hematoma was. Currently denies shortness breath difficulty breathing or chest pain. Currently not taking any medications therapy has been in symptoms. No other complaints at this time Tetanus witin 5 years: Yes Medication Reconciliation Allergies: Coded Allergies: No Known Allergies (Unverified , 03/08/25) Scheduled Albuterol Sulfate Nebs* (Proventil Nebs*), 1 VIAL NEB Q4H, (Reported) Alendronate Sodium (Fosamax), 1 TAB PO Q7D, (Reported) Aspirin (Ecotrin*), 1 TAB PO DAILY, (Reported) Bumetanide (Bumetanide), 4 TAB PO BID, (Reported) Calcium Carbonate* (Tums*), 1 TAB PO DAILY, (Reported) Cephalexin*Monohydrate* (Keflex*), 1 CAP PO Q8H Cholecalciferol (Vitamin D), 1 CAP PO DAILY, (Reported) Cholecalciferol (Vitamin D), 2 TAB PO DAILY, (Reported) Colchicine (Colchicine), 0.5 CAP PO DAILY, (Reported) Isavuconazonium Sulfate (Cresemba), 2 TAB PO QAM, (Reported) Losartan Potassium* (Cozaar*), 1 TAB PO QAM, (Reported) Magnesium Oxide (Magnesium), 2 TAB PO TID, (Reported) Mecobalamin (B12 Active), 1 TAB PO DAILY, (Reported) Methadone Hcl (Methadone), 80 MG PO DAILY, (Reported) Multivitamin (Multivitamin), 1 TAB PO DAILY, (Reported) Mycophenolate Mofetil (Cellcept), 3 CAP PO Q12H, (Reported) Omeprazole Magnesium (Prilosec Otc), 1 TAB PO DAILY, (Reported) Potassium Chloride (Potassium Chloride), 2 TAB PO QAM, (Reported) Pravastatin Sodium (Pravastatin Sodium), 1 TAB PO DAILY, (Reported) Prednisone* (Prednisone*), 2 TAB PO DAILY, (Reported) Propranolol Hcl* (Inderal*), 1 TAB PO TID, (Reported) Salmeterol Xinafoate* (Serevent Diskus*), 1 PUFFS INH Q12H, (Reported) Sulfamethoxazole/Trimethoprim (Bactrim Ds Tablet), 1 TAB PO MWF, (Reported) Tacrolimus (Prograf), 1.5 CAP PO Q12H, (Reported) Tiotropium [place] (Spiriva), 1 CAP INH DAILY, (Reported) Valganciclovir Hcl (Valcyte), 1 TAB PO Q12H, (Reported) Scheduled PRN Metolazone (ZAROXOLYN tablet), 1 TAB PO DAILY PRN for Per Protocol, (Reported) Naloxone HCl (Naloxone HCl), PRN PRN for resp rate < 8/min or SBP < 90, (Reported) Past Medical History Past Medical History: No Pertinent History, Congestive Heart Failure, Endocarditis, Hepatitis C Past Surgical History: no surgical history Smoking Status: Former smoker Alcohol Use: None Drug Use: none Occupation: employed Physical Exam Vital Signs: Temperature: 98.5, Source: Oral, Heart Rate: 70, Respiratory Rate: 16, BP: 100/72, Pulse Oximetry: 93, Weight: 87.600 Oxygen Flow Rate: 0 Physical Exam General: Well developed, well nourished, no distress. HEENT: Atraumatic, normal conjunctiva, moist mucous membranes. Neck: Full range of motion, supple. Respiratory: Lungs clear, no respiratory distress. Chest: No accessory muscle use, nontender. Cardiovascular: Regular rate and rhythm. Gastrointestinal: Soft, nontender, nondistended. Bowel sounds present. Extremities: Right lower extremity exam: Positive for erythema to the distal 3rd circumferentially extending to the tibia and fibula to the ankle. Positive for mild tenderness to palpation to the anterior tibial and fibula. Negative calf squeeze. Patient also has a small 1 cm x 1.4 cm eschar region to the posterior calf. Negative for tenderness to palpation over this region. Back: No midline tenderness, no CVA tenderness. Neurologic: Oriented x4. Distal gross motor and sensory intact all four extremities. Moves all 4 extremities spontaneously. Psychiatric: Normal mood and affect. Skin: Normal color, warm and dry. No edema, no ecchymosis Progress Results/Orders Results/Orders Orders - ZEN BROCK Culture Blood (03/19/25 14:40) Chest,Single View (03/19/25 14:40) Ct Lower Extremity (03/19/25 14:40) Clindamycin 300mg/D5w 50ml (Clindamycin (03/19/25 19:13) Completed Orders - ZEN BROCK Electrocardiogram (03/19/25 14:40) Cbc/Diff (03/19/25 14:40) Pt Inr (03/19/25 14:40) PTT (03/19/25 14:40) Urinalysis, Cult If Indicated (03/19/25 14:40) Chest,Single View (03/19/25 14:40) Hcg Serum Ql (03/19/25 14:40) CMP (03/19/25 14:40) Hs Troponin I W Calculations (03/19/25 14:40) Lacticsepsis (03/19/25 14:40) Procalcitonin (03/19/25 14:40) Ct Lower Extremity (03/19/25 14:40) Iohexol 300mg/Ml 100ml Inj. (Omnipaque-3 (03/19/25 15:33) Vital Signs 03/19/25 03/19/25 03/19/25 03/19/25 10:34 13:29 13:30 14:35 Temp 98.5 Pulse 71 69 72 Resp 16 16 14 14 B/P (MAP) 119/73 107/69 (82) Pulse Ox 98 95 93 O2 Flow Rate 0 0 0 03/19/25 03/19/25 03/19/25 03/19/25 15:30 16:30 18:39 18:40 Temp 98.5 Pulse 67 67 70 Resp 12 11 16 B/P (MAP) 100/72 (81) Pulse Ox 94 93 O2 Flow Rate 0 0 0 Laboratory Tests Test 03/19/25 15:06 03/19/25 16:20 White Blood Count 3.2 L Red Blood Count 3.46 L Hemoglobin 11.5 L Hematocrit 33.6 L Mean Corpuscular Volume 97.2 Mean Corpuscular Hemoglobin 33.4 H Mean Corpuscular Hemoglobin Concent 34.4 Red Cell Distribution Width 14.6 H Platelet Count 200 Mean Platelet Volume 8.3 Neutrophils (%) (Auto) 76.7 H Lymphocytes (%) (Auto) 14.0 L Monocytes (%) (Auto) 7.6 Eosinophils (%) (Auto) 1.0 Basophils (%) (Auto) 0.7 Neutrophils # (Auto) 2.4 Lymphocytes # (Auto) 0.4 L Monocytes # (Auto) 0.2 Eosinophils # (Auto) 0.0 Basophils # (Auto) 0.0 CBC Comment Prothrombin Time 10.9 INR International Normalized Ratio 1.1 Activated Partial Thromboplast Time 27 Coagulation Comments Sodium Level 138 Potassium Level 4.7 Chloride Level 103 Carbon Dioxide Level 29.0 Anion Gap 6 L Blood Urea Nitrogen 20 H Creatinine 1.43 H Estimated GFR/1.73 m2 42 BUN/Creatinine Ratio 14.0 Glucose Level 96 Lactic Acid Level 0.7 Calcium Level 9.0 Total Bilirubin 0.6 Aspartate Amino Transf (AST/SGOT) 26 Alanine Aminotransferase (ALT/SGPT) 30 Alkaline Phosphatase 169 H Troponin I High Sensitivity 201 *H Total Protein 7.1 Albumin 3.5 Globulin 3.6 Albumin/Globulin Ratio 1.0 L Procalcitonin < 0.05 Human Chorionic Gonadotropin, Qual Negative Chemistry Comments Urine Specimen Description Cln catch midstream Urine Color Yellow Urine Clarity Clear Urine pH 5.5 Urine Specific [place] 1.015 Urine Protein Negative Urine Glucose (UA) Negative Urine Ketones Negative Urine Occult Blood Negative Urine Nitrite Negative Urine Bilirubin Negative Urine Urobilinogen 0.2 Urine Leukocyte Esterase Negative Urine Culture Indicated Not ind Volume Urine Centrifuged 10 ml Urine Comment Microbiology Date/Time Source Procedure Growth Status 03/19/25 15:06 Blood Arm Left Blood Culture - Preliminary NEGATIVE (LESS THAN 24 HOURS) Resulted Medical Decision Making Additional info obtained from: old records Findings After detailed discussion and joint medical decision-making, diagnostic and imaging results were discussed with the patient. At this time patient does not appear to have evidence of a cellulitis but not a large hematoma. Likely have a blood clots based with the patient's physical exam patient has symptoms consistent with cellulitis and patient will be given IV antibiotics and discharged with clindamycin. Patient advised to follow up primary care. ER precautions given. Patient is stable upon discharge. All patient questions answered to satisfaction General Diff Dx:Considerations: Include: Other (Hematoma, cellulitis, contusion) Departure Disposition: HOME / SELF CARE / HOMELESS Impression: Primary Impression: Wound cellulitis Additional Impressions: Leg wound, right Traumatic hematoma of right lower leg with infection Discharge Instructions: Cellulitis, Adult Referrals: NO PRIMARY CARE PROVIDER (PCP) Prescriptions Clindamycin HCl (Clindamycin HCl) 300 Mg Capsule 1 CAP PO Q8H for 10 Days, #30 CAP Prov: ZEN BROCK 03/19/25 Education Educated: Patient Educated regarding: diagnosis, treatment Signature Scribe Signature: none used Attestation: Scribed for Zen Brock Pa by Zen UNDERWOOD . 03/19/25 19:43 ZEN BROCK March 19, 2025 19:31
[2025-03-19] MEDS: clindamycin 300mg/D5W 50mL 50 ML IV STA (19:36)
[2025-03-19] MEDS ORDERED: CLIN-167 PO (19:43)
[2025-03-19 20:32] VITALS: BP 107/63; PULSE 87; RESP 16; TEMP 98; O2SAT 100
== END 2025-03-19 20:45 | disposition home or self-care (01) ==
LOC: ER 10:24
DX: S80.11XA Contusion of right lower leg, initial encounter (principal); L03.115 Cellulitis of right lower limb; Z87.891 Personal history of nicotine dependence; X58.XXXA Exposure to other specified factors, initial encounter; Y93.89 Activity, other specified; Y92.89 Other specified places as the place of occurrence of the external cause; Y99.8 Other external cause status
CPT/HCPCS: 36415; 71045; 73701; 80053; 81003; 83605; 84145; 84484; 84703; 85025; 85610; 85730; 87040; 93005; 96365; 99285; J3490; Q9967

== ENCOUNTER 2025-04-07 09:44 | Emergency (ER) | payer MEDICAID ==
[~2025-04-07] VITALS: Ht 165.1 cm; Wt 84.0 kg
[~2025-04-07 09:44] MED LIST changes: -CEPH-585 PO
--- NOTE | 2025-04-07 10:31 | Physician Documentation ---
History of Present Illness ~ Stated Complaint: R LEG INFECTION Time Seen by MD: 10:28 Primary Medical Doctor: raheem baugh HPI 34-year-old female with a history of heart transplant presents to the ED after being evaluated for suspected complications on her lower extremities. According to the patient she has been placed on both Keflex and clindamycin for developing leg infection on her right lower extremity. Seen by the customer care agent at her heart care program they sent her to the ED out of concerns of a worsening infection along with severely diminished bilateral vascular insufficiency Tetanus witin 5 years: Yes Medication Reconciliation Allergies: Coded Allergies: No Known Allergies (Unverified , 04/07/25) Scheduled Albuterol Sulfate Nebs* (Proventil Nebs*), 1 VIAL NEB Q4H, (Reported) Alendronate Sodium (Fosamax), 1 TAB PO Q7D, (Reported) Aspirin (Ecotrin*), 1 TAB PO DAILY, (Reported) Bumetanide (Bumetanide), 4 TAB PO BID, (Reported) Calcium Carbonate* (Tums*), 1 TAB PO DAILY, (Reported) Cholecalciferol (Vitamin D), 1 CAP PO DAILY, (Reported) Cholecalciferol (Vitamin D), 2 TAB PO DAILY, (Reported) Colchicine (Colchicine), 0.5 CAP PO DAILY, (Reported) Isavuconazonium Sulfate (Cresemba), 2 TAB PO QAM, (Reported) Losartan Potassium* (Cozaar*), 1 TAB PO QAM, (Reported) Magnesium Oxide (Magnesium), 2 TAB PO TID, (Reported) Mecobalamin (B12 Active), 1 TAB PO DAILY, (Reported) Methadone Hcl (Methadone), 80 MG PO DAILY, (Reported) Multivitamin (Multivitamin), 1 TAB PO DAILY, (Reported) Mycophenolate Mofetil (Cellcept), 3 CAP PO Q12H, (Reported) Omeprazole Magnesium (Prilosec Otc), 1 TAB PO DAILY, (Reported) Potassium Chloride (Potassium Chloride), 2 TAB PO QAM, (Reported) Pravastatin Sodium (Pravastatin Sodium), 1 TAB PO DAILY, (Reported) Prednisone* (Prednisone*), 2 TAB PO DAILY, (Reported) Propranolol Hcl* (Inderal*), 1 TAB PO TID, (Reported) Salmeterol Xinafoate* (Serevent Diskus*), 1 PUFFS INH Q12H, (Reported) Sulfamethoxazole/Trimethoprim (Bactrim Ds Tablet), 1 TAB PO MWF, (Reported) Tacrolimus (Prograf), 1.5 CAP PO Q12H, (Reported) Tiotropium [place] (Spiriva), 1 CAP INH DAILY, (Reported) Valganciclovir Hcl (Valcyte), 1 TAB PO Q12H, (Reported) Scheduled PRN Metolazone (ZAROXOLYN tablet), 1 TAB PO DAILY PRN for Per Protocol, (Reported) Naloxone HCl (Naloxone HCl), PRN PRN for resp rate < 8/min or SBP < 90, (Reported) Past Medical History Past Medical History: No Pertinent History, Congestive Heart Failure, Endocarditis, Hepatitis C Past Surgical History: no surgical history Alcohol Use: None Drug Use: none Occupation: employed Review of Systems All Other Systems at this time: Reviewed and Negative ROS As stated above in the HPI, otherwise all systems are reviewed and negative. Physical Exam Physical Exam General: Alert, no apparent distress. Respiratory: Lungs clear, no respiratory distress. Chest: No accessory muscle use. Notable midsternal scar Extremities: Normal range of motion, no deformity. Discoloration with a notable dark ulceration on the posterior aspect of the left calf, warm to touch Neurologic: Oriented x4. Psychiatric: Normal mood and affect. Skin: Normal color, warm and dry. No edema, no ecchymosis. Progress Results/Orders Results/Orders Orders - RADHAMES WEEKS STATISTICAL ASSISTANT Culture Blood (04/07/25 10:30) Chest,Single View (04/07/25 10:30) Monitor (04/07/25 10:30) Oxygen (04/07/25 10:30) Saline Lock (04/07/25 10:30) Straight Cath For Urine Sample (04/07/25 10:30) Page Hospitalist (04/07/25 ) Piperacillin/Tazo 3.375gm/50ml (Zosyn 3. (04/07/25 16:00) Vancomycin/Ns 1 Gm Add-[place] (Vancomyc (04/07/25 13:40) Completed Orders - RADHAMES WEEKS STATISTICAL ASSISTANT Cbc/Diff (04/07/25 10:30) Chest,Single View (04/07/25 10:30) Procalcitonin (04/07/25 10:30) BMP (04/07/25 10:30) Lacticsepsis (04/07/25 10:30) Ua W/Microscopic, Cult If Ind (04/07/25 12:40) Vancomycin*Pharmacy To Dose* (Vancomycin (04/07/25 13:15) Vital Signs 04/07/25 04/07/25 04/07/25 10:26 12:33 12:36 Temp 97.0 97.0 Pulse 69 64 Resp 19 18 14 B/P (MAP) 127/88 125/71 (89) Pulse Ox 96 97 O2 Flow Rate 0 0 Laboratory Tests Test 04/07/25 11:23 04/07/25 12:40 White Blood Count 3.6 L Red Blood Count 3.64 L Hemoglobin 11.9 L Hematocrit 35.1 Mean Corpuscular Volume 96.5 Mean Corpuscular Hemoglobin 32.8 H Mean Corpuscular Hemoglobin Concent 34.0 Red Cell Distribution Width 13.5 Platelet Count 209 Mean Platelet Volume 8.6 Neutrophils (%) (Auto) 63.4 Lymphocytes (%) (Auto) 20.5 L Monocytes (%) (Auto) 10.6 Eosinophils (%) (Auto) 4.2 Basophils (%) (Auto) 1.3 H Neutrophils # (Auto) 2.3 Lymphocytes # (Auto) 0.7 L Monocytes # (Auto) 0.4 Eosinophils # (Auto) 0.1 Basophils # (Auto) 0.0 CBC Comment Sodium Level 139 Potassium Level 4.5 Chloride Level 103 Carbon Dioxide Level 27.8 Anion Gap 8 Blood Urea Nitrogen 20 H Creatinine 1.27 H Estimated GFR/1.73 m2 48 BUN/Creatinine Ratio 15.7 Glucose Level 97 Lactic Acid Level 0.7 Calcium Level 9.0 Albumin 3.9 Procalcitonin < 0.05 Chemistry Comments Urine Specimen Description Cln catch midstream Urine Color Yellow Urine Clarity Clear Urine pH 6.0 Urine Specific [place] 1.010 Urine Protein Negative Urine Glucose (UA) Negative Urine Ketones Negative Urine Occult Blood Moderate H Urine Nitrite Negative Urine Bilirubin Negative Urine Urobilinogen 0.2 Urine Leukocyte Esterase Negative Urine RBC 10-20 Urine WBC None seen Urine Squamous Epithelial Cells Few Urine Bacteria Few Urine Mucus Few Urine Culture Indicated Not ind Volume Urine Centrifuged 10 ml Urine Comment Microbiology Date/Time Source Procedure Growth Status 04/07/25 11:23 Blood Arm Right Blood Culture - Preliminary NEGATIVE (LESS THAN 24 HOURS) Resulted Medical Decision Making Findings Due to this patient's medical history and to failed antibiotic regimens recommending hospitalization for IV antibiotics. She is not toxic at this time i and r laboratories are reassuring however pre she presents with a risk of decompensation and worsening outcomes if she does not received the appropriate treatment spoke to [facility]: they requested we transfer the patient as she is a high risk for heart transplant rejection at this time. He is nontoxic and labs are reassuring and she does not meet criteria for a safe transfer at this time Foot Diff Dx:Considerations: Include: Abrasion, Arthritis, Cellulitis, Contusion, Dislocation, DJD, Fracture-metatarsal, Fracture-phalynx, Fracture- tarsal, Gout, Hematoma, Ingrown toenail, Laceration, Malunion, Neurovascular injury, Open fracture, Paronychia, Puncture, Rheumatoid, Sprain, Septic, Carr bungual hematoma, Ulcer, Other Toe Diff Dx:Considerations: Include: Abrasion, Cellulitis, Contusion, Dislo cation, Felon, Fracture, Hematoma, Laceration, Neurovascular injury, Open fracture, Paronychia, Subungual hematoma, Other Departure Disposition: 51 HOSPICE/MEDICAL FACILITY Impression: Primary Impression: Wound cellulitis Condition: Stable Referrals: NO PRIMARY CARE PROVIDER (PCP) Signature Scribe Signature: t Attestation: The note accurately reflects work and decisions made by me.Radhames Rg NP 04/07/25 12:43 RADHAMES WEEKS NP Apr 07, 2025 10:31
--- NOTE | 2025-04-07 11:13 | RADIOLOGY REPORT ---
CHEST RADIOGRAPH Indication: INFECTION Technique: Single frontal view of the chest was obtained COMPARISON: DI CHEST,SINGLE VIEW on DOS: 03/19/25, DI CHEST,SINGLE VIEW on DOS: 03/08/25, DI CHEST,SING LE VIEW on DOS: 12/09/24, DI CHEST,SINGLE VIEW on DOS: 06/21/24 FINDINGS: Lines and Tubes: Median sternotomy Lungs: Clear Pleura: No effusion. No pneumothorax. Cardiomediastinal contours: Unremarkable Bones: Unremarkable IMPRESSION: No acute disease.
[2025-04-07 11:41] LABS: ALBUMIN 3.9 G/DL (3.4-5.0); ANION GAP 8 (8-16); BLOOD UREA NITROGEN 20 MG/DL (7-18); BUN/CREATININE RATIO 15.7 (10.0-20.0); CHLORIDE 103 MMOL/L (99-107); CREATININE 1.27 MG/DL (0.40-0.90); GLUCOSE 97 MG/DL (70-104); POTASSIUM 4.5 MMOL/L (3.5-5.1); SODIUM 139 MMOL/L (135-145); TOTAL CARBON DIOXIDE 27.8 MMOL/L (24-32); eCRCL 56 ML/MIN; eGFR 48 ML/MIN
[2025-04-07 11:44] LABS: BASOPHILS % (AUTO) 1.3 % (0-1); EOSINOPHILS # (AUTO) 0.1 X10'3 (0-0.9); EOSINOPHILS % (AUTO) 4.2 % (0-6); HEMATOCRIT 35.1 % (35.0-45.0); HEMOGLOBIN 11.9 g/dl (12.0-16.0); LYMPHOCYTES # (AUTO) 0.7 X10'3 (1.1-4.8); LYMPHOCYTES % (AUTO) 20.5 % (21-51); MEAN CORPUSCULAR HEMOGLOBIN 32.8 PG (27.0-31.0); MEAN CORPUSCULAR VOLUME 96.5 FL (78-98); MEAN PLATELET VOLUME 8.6 FL (7.4-10.4); MONOCYTES # (AUTO) 0.4 X10'3 (0-0.9); MONOCYTES % (AUTO) 10.6 % (2-12); NEUTROPHILS # (AUTO) 2.3 X10'3 (1.8-7.7); NEUTROPHILS % (AUTO) 63.4 % (42-75); PLATELET COUNT 209 X10'3 (140-440); RED BLOOD COUNT 3.64 X10'6 (4.20-5.60); RED CELL DISTRIBUTION WIDTH 13.5 % (11.5-14.5); WHITE BLOOD COUNT 3.6 X10'3 (4.5-11.0)
[2025-04-07 13:12] LABS: BILIRUBIN,URINE NEGATIVE (Neg); CLARITY,URINE CLEAR (Clear); COLOR,URINE YELLOW (Yellow); GLUCOSE, URINE NEGATIVE (Neg); KETONES,URINE NEGATIVE (Neg); LEUKOCYTE ESTERASE ,URINE NEGATIVE (Neg); NITRITES, URINE NEGATIVE (Neg); OCCULT BLOOD,URINE MODERATE (Neg); PROTEIN,URINE NEGATIVE (Neg); UROBILINOGEN,URINE 0.2 E.U/dL (0.2-1.0)
[2025-04-07 13:14] LABS: UA COLLECTION TYPE CLN CATCH MIDSTREAM
[2025-04-07 13:40] LABS: BACTERIA,URINE FEW /HPF (Neg); WBC,URINE NONE SEEN /HPF (0-4)
[2025-04-07 13:41] LABS: MUCUS STRANDS FEW /LPF (Neg); SQUAMOUS EPITHELIAL CELL,UR FEW /LPF (FEW)
[2025-04-07] MEDS: vancomycin/NS 1 GM ADD-VANTAGE 250 ML X 1 DOSE IV ONE (14:21)
[2025-04-07] MEDS: piperacillin/tazo 3.375gm/50ml 50 ML IV SCH (15:55)
[2025-04-07 18:03] VITALS: BP 96/65; PULSE 57; RESP 18; TEMP 98.5; O2SAT 98
== END 2025-04-07 18:14 | disposition hospice, inpatient (51) ==
LOC: ER 09:45
DX: L03.115 Cellulitis of right lower limb (principal); Z79.899 Other long term (current) drug therapy
CPT/HCPCS: 36415; 71045; 80048; 81001; 83605; 84145; 85025; 87040; 96365; 96366; 96368; 99284; J2543; J3370

== ENCOUNTER 2025-05-06 11:23 | Emergency (ER) | payer MEDICAID ==
[~2025-05-06] VITALS: Ht 165.1 cm; Wt 86.9 kg
--- NOTE | 2025-05-06 12:46 | Physician Documentation ---
History of Present Illness ~ Chief Complaint: Wound Re-Check Stated Complaint: RT LEG WOUND Time Seen by MD: 11:49 Primary Medical Doctor: raheem baugh Source: patient Mode of Arrival: POV Exam Limitations: no limitations HPI 35-year-old female with chief complaint right leg wound which he has had for six weeks now. States she saw her primary care provider who sent a referral to wound care but she has not yet been contacted. She decided to come to the ER today because when she took the dressing off she thought that there was "pus She denies any increased pain in the area. She has a history of similar wound on left leg and thus states she is aware of the routine with wound care. She has been cleaning wound with betadine. She has not applied anything to the wound as states she was doing this but states "it got really moist so they told me to keep it open." +CHF, h/o heart transplant, venous insufficiency Tetanus within 5 years?: Yes Medication Reconciliation Allergies: Coded Allergies: No Known Allergies (Unverified , 04/07/25) Scheduled Albuterol Sulfate Nebs* (Proventil Nebs*), 1 VIAL NEB Q4H, (Reported) Alendronate Sodium (Fosamax), 1 TAB PO Q7D, (Reported) Aspirin (Ecotrin*), 1 TAB PO DAILY, (Reported) Bumetanide (Bumetanide), 4 TAB PO BID, (Reported) Calcium Carbonate* (Tums*), 1 TAB PO DAILY, (Reported) Cholecalciferol (Vitamin D), 1 CAP PO DAILY, (Reported) Cholecalciferol (Vitamin D), 2 TAB PO DAILY, (Reported) Colchicine (Colchicine), 0.5 CAP PO DAILY, (Reported) Isavuconazonium Sulfate (Cresemba), 2 TAB PO QAM, (Reported) Losartan Potassium* (Cozaar*), 1 TAB PO QAM, (Reported) Magnesium Oxide (Magnesium), 2 TAB PO TID, (Reported) Mecobalamin (B12 Active), 1 TAB PO DAILY, (Reported) Methadone Hcl (Methadone), 80 MG PO DAILY, (Reported) Multivitamin (Multivitamin), 1 TAB PO DAILY, (Reported) Mycophenolate Mofetil (Cellcept), 3 CAP PO Q12H, (Reported) Omeprazole Magnesium (Prilosec Otc), 1 TAB PO DAILY, (Reported) Potassium Chloride (Potassium Chloride), 2 TAB PO QAM, (Reported) Pravastatin Sodium (Pravastatin Sodium), 1 TAB PO DAILY, (Reported) Prednisone* (Prednisone*), 2 TAB PO DAILY, (Reported) Propranolol Hcl* (Inderal*), 1 TAB PO TID, (Reported) Salmeterol Xinafoate* (Serevent Diskus*), 1 PUFFS INH Q12H, (Reported) Sulfamethoxazole/Trimethoprim (Bactrim Ds Tablet), 1 TAB PO MWF, (Reported) Tacrolimus (Prograf), 1.5 CAP PO Q12H, (Reported) Tiotropium [place] (Spiriva), 1 CAP INH DAILY, (Reported) Valganciclovir Hcl (Valcyte), 1 TAB PO Q12H, (Reported) Scheduled PRN Metolazone (ZAROXOLYN tablet), 1 TAB PO DAILY PRN for Per Protocol, (Reported) Naloxone HCl (Naloxone HCl), PRN PRN for resp rate < 8/min or SBP < 90, (Reported) Past Medical History Past Medical History: No Pertinent History, Congestive Heart Failure, Endocarditis, Hepatitis C Past Surgical History: no surgical history Last Menstrual Period: May 02, 2025 Alcohol Use: None Drug Use: none Occupation: employed Review of Systems All Other Systems at this time: Reviewed and Negative Physical Exam Vital Signs: Temperature: 98.1, Source: Oral, Heart Rate: 81, Respiratory Rate: 18, BP: 121/83, Pulse Oximetry: 94, Weight: 86.900 Oxygen Flow Rate: 0 Physical Exam GENERAL: Alert, no acute distress. HEENT: NCAT, EOMI, PERRL, normal oropharynx, moist oral mucosa. NECK: Supple, trachea midline. CARDIAC: Regular rate and rhythm, no murmurs, rubs, or gallops. PV: Equal distal RADIAL pulses. Trace lower extremity edema, cap refill less than 2 seconds. RESPIRATORY: Equal breath sounds, clear to auscultation bilaterally, no respira tory distress. MUSCULOSKELETAL: Normal range of motion, nontender, no swelling. Normal gait. NEUROLOGICAL: Awake, alert, and oriented x 3. SKIN: Warm/dry, no pallor, no rash. ULCER RIGHT LOWER LEG MEASURING ABOUT 3.5CM IN DIAMETER, DEPTH IS ABOUT 2MM, WOUND BED IS BEEFY RED, NO SURROUNDING ERYTHEMA. BRAWNY DISCOLORATION OF BOTH LEFT AND RIGHT LEG WITH VARICOSE VEINS BILATERALLY. PSYCH: Alert and appropriate. Affect congruent with mood. Speech is clear. Good eye contact. Progress Results/Orders Results/Orders Vital Signs 05/06/25 05/06/25 05/06/25 11:26 11:48 11:49 Temp 97.9 98.1 Pulse 85 81 Resp 18 18 18 B/P (MAP) 111/86 121/83 (96) Pulse Ox 97 94 O2 Flow Rate 0 Medical Decision Making Differential Dx:Considerations: Include: Abscess, Cellulitis, Dressing change, Healing wound Departure Time of Disposition: 12:43 Disposition: 01 HOME / SELF CARE / HOMELESS Impression: Primary Impression: Wound of skin Additional Impressions: Venous insufficiency CHF (congestive heart failure) Qualified Codes: I50.9 - Heart failure, unspecified Immunosuppression due to chronic steroid use Heart transplant recipient Condition: Stable Discharge Instructions: Wound Care, Adult Additional Instructions: RECOMMEND THE SURGICAL GRADE HONEY TO PUT ON THE AREA WHILE WAITING TO SEE WOUND CARE WHICH YOU CAN GET AT YOUR LOCAL DRUG STORE OTHERWISE WAIT TO SEE WOUND CARE AND CONTINUE WITH CLEANING WITH BETADINE IF INCREASING IN SIZE, PAIN OR ANY OTHER CONCERNING SYMPTOMS RETURN TO ER Referrals: NO PRIMARY CARE PROVIDER (PCP) [facility] Education Educated: Patient Educated regarding: diagnosis, treatment, need for follow up Signature Scribe Signature: X Attestation: AMARJIT ALVARADO May 06, 2025 12:46
[2025-05-06 13:00] VITALS: TEMP 98
[2025-05-06 13:04] VITALS: BP 119/84; PULSE 79; RESP 16; O2SAT 95
== END 2025-05-06 13:04 | disposition home or self-care (01) ==
LOC: ER 11:23
DX: S80.921A Unspecified superficial injury of right lower leg, initial encounter (principal); I87.2 Venous insufficiency (chronic) (peripheral); I50.9 Heart failure, unspecified; D84.821 Immunodeficiency due to drugs; Z94.1 Heart transplant status; Z79.52 Long term (current) use of systemic steroids; X58.XXXA Exposure to other specified factors, initial encounter; Y93.89 Activity, other specified; Y92.89 Other specified places as the place of occurrence of the external cause; Y99.8 Other external cause status
CPT/HCPCS: 99282

== ENCOUNTER 2025-08-04 13:08 | Emergency (ER) | payer MEDICAID ==
[~2025-08-04] VITALS: Ht 165.1 cm; Wt 88.6 kg
[~2025-08-04 13:08] MED LIST changes: -BUME1TAB34 PO; +BUME1TAB45 PO; +PRAV20TA17 PO; -PRAV20TA4 PO
--- NOTE | 2025-08-04 13:31 | Physician Documentation ---
History of Present Illness ~ Stated Complaint: ABNORMAL LABS Time Seen by MD: 14:53 Primary Medical Doctor: raheem baugh HPI 35-year-old female history of heart transplant approximately a year ago her nurse coordinator called today after noticing her creatinine elevated at 4. Patient states that her creatinine is usually around 1.3. Patient states she has generally felt unwell without specific symptoms for the past week. No dehydration dysuria urgency or frequency. Patient does state that she has had history of acute kidney injury in the past which has resolved Medication Reconciliation Allergies: Coded Allergies: No Known Allergies (Unverified , 08/04/25) Scheduled Albuterol Sulfate Nebs* (Proventil Nebs*), 1 VIAL NEB Q4H, (Reported) Alendronate Sodium (Fosamax), 1 TAB PO Q7D, (Reported) Aspirin (Ecotrin*), 1 TAB PO DAILY, (Reported) Bumetanide (Bumetanide), 4 TAB PO BID, (Reported) Calcium Carbonate* (Tums*), 1 TAB PO DAILY, (Reported) Cholecalciferol (Vitamin D), 1 CAP PO DAILY, (Reported) Cholecalciferol (Vitamin D), 2 TAB PO DAILY, (Reported) Colchicine (Colchicine), 0.5 CAP PO DAILY, (Reported) Isavuconazonium Sulfate (Cresemba), 2 TAB PO QAM, (Reported) Losartan Potassium* (Cozaar*), 1 TAB PO QAM, (Reported) Magnesium Oxide (Magnesium), 2 TAB PO TID, (Reported) Mecobalamin (B12 Active), 1 TAB PO DAILY, (Reported) Methadone Hcl (Methadone), 80 MG PO DAILY, (Reported) Multivitamin (Multivitamin), 1 TAB PO DAILY, (Reported) Mycophenolate Mofetil (Cellcept), 3 CAP PO Q12H, (Reported) Omeprazole Magnesium (Prilosec Otc), 1 TAB PO DAILY, (Reported) Potassium Chloride (Potassium Chloride), 2 TAB PO QAM, (Reported) Pravastatin Sodium (Pravastatin Sodium), 1 TAB PO DAILY, (Reported) Prednisone* (Prednisone*), 2 TAB PO DAILY, (Reported) Propranolol Hcl* (Inderal*), 1 TAB PO TID, (Reported) Salmeterol Xinafoate* (Serevent Diskus*), 1 PUFFS INH Q12H, (Reported) Sulfamethoxazole/Trimethoprim (Bactrim Ds Tablet), 1 TAB PO MWF, (Reported) Tacrolimus (Prograf), 1.5 CAP PO Q12H, (Reported) Tiotropium [place] (Spiriva), 1 CAP INH DAILY, (Reported) Valganciclovir Hcl (Valcyte), 1 TAB PO Q12H, (Reported) Scheduled PRN Metolazone (ZAROXOLYN tablet), 1 TAB PO DAILY PRN for Per Protocol, (Reported) Naloxone HCl (Naloxone HCl), PRN PRN for resp rate < 8/min or SBP < 90, (Reported) Past Medical History Past Medical History: Congestive Heart Failure, Endocarditis, Hepatitis C Past Surgical History: no surgical history Alcohol Use: None Drug Use: none Occupation: employed Review of Systems All Other Systems at this time: Reviewed and Negative Genitourinary: Reports: see HPI Physical Exam Physical Exam General: Alert, no apparent distress. HEENT: moist mucous membranes. Neck: Full range of motion. Respiratory: No respiratory distress speaking in full sentences Chest: No accessory muscle use. Cardiovascular: Appears well perfused Neurologic: Oriented x4. Psychiatric: Normal mood and affect. Skin: Normal color, warm and dry. No edema, no ecchymosis. Progress Results/Orders Results/Orders Medications Received in ER Medications (Trade) Dose Ordered Sig/Armand Route PRN Reason Start Time Stop Time Status Last Admin Dose Admin (0.9% sodium chloride (NS) 1000ml IV soln) 1,000 ml ONCE ONCE IVB 08/04/25 15:10 08/04/25 15:11 DC 08/04/25 15:37 1,000 ML Sodium Chloride 1,000 ml @ 100 mls/hr Q10H IV 08/04/25 15:50 08/04/25 16:07 100 MLS/HR Vital Signs 08/04/25 08/04/25 08/04/25 13:26 15:18 15:38 Temp 96.9 96.9 Pulse 80 73 Resp 18 16 16 B/P (MAP) 98/62 95/60 (72) Pulse Ox 99 98 O2 Flow Rate 0 0 Laboratory Tests Test 08/04/25 13:53 08/04/25 15:30 White Blood Count 4.8 Red Blood Count 3.66 L Hemoglobin 11.5 L Hematocrit 34.3 L Mean Corpuscular Volume 93.7 Mean Corpuscular Hemoglobin 31.3 H Mean Corpuscular Hemoglobin Concent 33.4 Red Cell Distribution Width 14.7 H Platelet Count 295 Mean Platelet Volume 8.8 Neutrophils (%) (Auto) 66.6 Lymphocytes (%) (Auto) 17.3 L Monocytes (%) (Auto) 13.5 H Eosinophils (%) (Auto) 1.3 Basophils (%) (Auto) 1.3 H Neutrophils # (Auto) 3.2 Lymphocytes # (Auto) 0.8 L Monocytes # (Auto) 0.6 Eosinophils # (Auto) 0.1 Basophils # (Auto) 0.1 CBC Comment Erythrocyte Sedimentation Rate 50 H Sodium Level 136 Potassium Level 4.9 Chloride Level 98 L Carbon Dioxide Level 28.7 Anion Gap 9 Blood Urea Nitrogen 43 H Creatinine 4.04 H Estimated GFR/1.73 m2 13 BUN/Creatinine Ratio 10.6 Glucose Level 121 H Calcium Level 9.7 Pro-B-Type Natriuretic Peptide 3712 H Albumin 3.5 Procalcitonin < 0.05 Chemistry Comments Urine Specimen Description Non-specified Urine Color Yellow Urine Clarity Clear Urine pH 5.5 Urine Specific [place] 1.020 Urine Protein Negative Urine Glucose (UA) Negative Urine Ketones Negative Urine Occult Blood Large H Urine Nitrite Negative Urine Bilirubin Small Urine Urobilinogen 0.2 Urine Leukocyte Esterase Trace H Urine RBC Tntc Urine WBC 5-10 H Urine Squamous Epithelial Cells Moderate Urine Transitional Epithelial Cells Moderate Urine Bacteria 1+ Urine Hyaline Casts 0-3 Urine Mucus Few Urine Culture Indicated Indicated Volume Urine Centrifuged 6 ml Urine HCG, Qualitative Negative Urine Comment Low volume EKG/XRAY/CT/US/VASC/MRI Chest X-Ray : Additional Comments CHEST RADIOGRAPH Indication: Admit history of heart surgery Technique: DI CHEST,SINGLE VIEW Comparison: None FINDINGS: The cardiac silhouette is unremarkable. The lungs demonstrate no pulmonary airspace consolidation. The pulmonary vasculature is mildly prominent. There is no pleural effusion. There is no pneumothorax. Median sternotomy wires. IMPRESSION: Mild pulmonary vascular congestion. Medical Decision Making Findings Surgery as well as the recent labs she stated her nurse coordinator told her to come in to CBC BMP has been ordered which do reflect acute kidney injury without cause. Awaiting urine we will admit for acute kidney injury Departure Time of Disposition: 15:23 Disposition: 02 SHORT TERM HOSPITAL Impression: Primary Impression: Abnormal laboratory test result Additional Impression: Acute kidney injury Condition: Fair Referrals: NO PRIMARY CARE PROVIDER (PCP) Education Educated: Patient Educated regarding: diagnosis, treatment, need for follow up Additional Comment Additional Comment Date: Aug 04, 2025 Time: 19:34 Additional note by Mendoza Coffman, DO: I took over the care of this patient from previous physician. I reviewed any previous notes available, obtain my own history, review of systems and physical examination was performed by myself. This is a 35-year-old female status post heart transplant, was noted to have GEOFFREY. The previous provider attempted to admit the patient locally, however we have received a call from Dr. Cassandra Mims at [facility] who indicates that patient needs close monitoring of her tacrolimus levels, and that signed out lab that we have here with a not be sufficient and can presents significant danger to patient's well being. She requests we transfer the patient to [facility], she is the accepting physician. Transfer process was initiated. CRITICAL CARE TIME: [45] minutes Treatments/Evaluations: Close monitoring and treatment of unstable vital signs, cardiorespiratory, and neurologic status, while maintaining tight balance of fl uid, respiratory, and cardiac interventions. This time includes discussing the case with the patient and the patients family. This time does not include all procedures stated elsewhere in this record. This time also includes reviewing old records, labs and radiological studies. This time includes examining and re- examining the patient. Additionally, this time also includes arranging care with admitting and consulting physicians. Hemodynamics reviewed. Patient remained hemodynamically stable. She is not febrile, not tachycardic, no evidence of hypotension with a her blood pressure somewhat soft. Normal oxygen. Laboratory studies reviewed. There was no leukocytosis, mild anemia of 11.5. Normal platelets of 295. Only 66% neutrophils. ESR slightly elevated at 50. Her chemistry notable for acute kidney injury with a creatinine of 4.04. BNP is elevated at 3700. The patient is positive for methadone on a drug screen. UA is positive for questionable UTI. Renal ultrasound was unremarkable. Chest x-ray showed mild pulmonary congestion. Echocardiogram was obtained, official read is still pending. Patient will require transfer to higher level of care/[facility] for further evaluation and management of their disease process. The case was discussed with [Dr. Cassandra Mims] of the admitting service at [1930] hours and they were made aware of all the patient's active issues, including the above-mentioned history, physical exam findings, and the diagnostic results, as well as our concerns and suspicions, as well as any possible incidental findings and pending test. They agreed with the transfer for higher level of care to their service [facility], and agreed to assume responsibility for the patient's ongoing care and management upon her arrival to the outside hospital. Patient was admitted in [guarded] condition. Signature Scribe Signature: no Scribe Attestation: The note accurately reflects work and decisions made by me.Lisa Coates - PATENT SOLICITOR 08/04/25 15:23 Date: Aug 04, 2025 Time: 19:36 This note accurately reflects clinical decisions, work performed by myself, DO GEOFFREY Benítez STEPHANIE K NP Aug 04, 2025 13:31 MENDOZA COFFMAN DO Aug 04, 2025 19:39
[2025-08-04 14:18] LABS: MEAN PLATELET VOLUME 8.8 FL (7.4-10.4); RED CELL DISTRIBUTION WIDTH 14.7 % (11.5-14.5)
[2025-08-04 14:28] LABS: CREATININE 4.04 MG/DL (0.40-0.90); TOTAL CARBON DIOXIDE 28.7 MMOL/L (24-32); eCRCL 17 ML/MIN; eGFR 13 ML/MIN
--- NOTE | 2025-08-04 15:17 | ELECTROCARDIOGRAPH REPORT ---
[facility] Test Date: 2025-08-04 Test Time: 15:15:00 Pat Name: KALE BLOUNT Department: [facility]- Patient ID: [facility]-[id number] Room: Gender: F Bods Developer: : 1990 Requested By: JAZZY HALE Order Number: [id number] Reading MD: Measurements Intervals [place] Rate: 73 P: 53 TN: 158 QRS: 68 QRSD: 101 T: 67 QT: 398 QTc: 439 Interpretive Statements Sinus rhythm Please click the below link to view image of tracing.
--- NOTE | 2025-08-04 15:22 | RADIOLOGY REPORT ---
CHEST RADIOGRAPH Indication: Admit history of heart surgery Technique: DI CHEST,SINGLE VIEW Comparison: None FINDINGS: The cardiac silhouette is unremarkable. The lungs demonstrate no pulmonary airspace consolidation. The pulmonary vasculature is mildly prominent. There is no pleural effusion. There is no pneumothorax. Median sternotomy wires. IMPRESSION: Mild pulmonary vascular congestion.
[2025-08-04] MEDS: normal saline 1000ML IV soln IVB ONE (15:37)
[2025-08-04] MEDS ORDERED: ondansetron/PF 4mg/2ml inj IV PRN (15:50)
[2025-08-04] MEDS ORDERED: potassium Cl 40MEQ/1/2NS 520ml 520 ML IV PRN (15:50)
[2025-08-04] MEDS ORDERED: magnesium sulf-water 4G/100mL 100 ML IV PRN (15:50)
[2025-08-04] MEDS ORDERED: potassium Cl 20 mEq SR tablet PO PRN ×2 (15:50)
[2025-08-04] MEDS ORDERED: magnesium Cl slow-release 64mg tablet PO PRN (15:50)
[2025-08-04] MEDS ORDERED: magnesium sulf-water 2g/50mL 50 ML IV PRN (15:50)
[2025-08-04 15:57] LABS: LEUKOCYTE ESTERASE ,URINE TRACE (Neg); NITRITES, URINE NEGATIVE (Neg); OCCULT BLOOD,URINE LARGE (Neg); URINE HCG NEGATIVE (NEG)
[2025-08-04 16:00] LABS: UA COLLECTION TYPE NON-SPECIFIED
[2025-08-04 16:07] LABS: MUCUS STRANDS FEW /LPF (Neg); SQUAMOUS EPITHELIAL CELL,UR MODERATE /LPF (FEW)
[2025-08-04] MEDS: normal saline 1000ml 1,000 ML IV SCH (16:07)
[2025-08-04 16:08] LABS: HYALINE CASTS 0-3 /LPF (NEGATIVE)
[2025-08-04 16:47] LABS: PRO BRAIN NATRIURETIC PEPTIDE 3712 PG/ML (0-125)
--- NOTE | 2025-08-04 17:00 | RADIOLOGY REPORT ---
INDICATION: acute Renal failure TECHNIQUE: Multiple real-time sonographic images of the kidneys and bladder were obtained. COMPARISON: None FINDINGS: RIGHT kidney measures 11.1 cm in length. No hydronephrosis. LEFT kidney measures 9.7 cm in length. No hydronephrosis. No large intraluminal masses are seen in the bladder. IMPRESSION: 1. Unremarkable examination.
[2025-08-04 18:11] LABS: LEUKOCYTE ESTERASE ,URINE TRACE (Neg); NITRITES, URINE NEGATIVE (Neg); OCCULT BLOOD,URINE LARGE (Neg)
[2025-08-04 18:15] LABS: UA COLLECTION TYPE VOIDED
[2025-08-04 18:20] LABS: MUCUS STRANDS FEW /LPF (Neg)
[2025-08-04 18:22] LABS: SQUAMOUS EPITHELIAL CELL,UR FEW /LPF (FEW)
[2025-08-04 18:26] LABS: CREATININE,URINE RANDOM 92.0 MG/DL; TOTAL PROTEIN,URINE RANDOM 20.0 MG/DL; UA UREA RANDOM 277.0 MG/DL; URINE AMPHETAMINE SCREEN NEGATIVE (Neg); URINE BARBITUATE SCREEN NEGATIVE (Neg); URINE BENZODIAZEPINES SCREEN NEGATIVE (Neg); URINE CANNABINOID SCREEN NEGATIVE (Neg); URINE COCAINE SCREEN NEGATIVE (Neg); URINE METHADONE SCREEN POSITIVE (Neg); URINE OPIATE SCREEN NEGATIVE (Neg); URINE PHENCYCLIDINE SCREEN NEGATIVE (Neg)
--- NOTE | 2025-08-04 18:38 | HISTORY AND PHYSICAL ---
History & Physical Providers to CC ~ History of Present Illness Reason for Admit\Complaint: Abnormal labs in outpatient setting History of Present Illness Patient is 35-year-old female with a history of heart transplantation which was done a year ago. Patient was contacted by nursing staff and they told her to go to the hospital due to elevated creatinine levels. Patient states that her creatinine is usually around 1.3. Patient does state that she has had history of acute kidney injury in the past which has resolved. Patient denied any other symptoms to me in visit. As per her home medication list 27 medications is seen medication reconciliation pending. Patient has chronic pain syndrome and currently on methadone. 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 She mentioned that her water rights specialist is in [facility] and currently she does not have any water rights specialist in [facility]. Patient follows with primary care provider in [facility] office. Patient denied use of any tobacco alcohol or any recreational drug. Hospitalist services contacted for admission for acute renal failure. She also mentioned to me that her water rights specialist in [facility] is on zoom visits and they are changing or stopping her medication and they are ordering weekly labs for her. Allergies: Coded Allergies: No Known Allergies (Unverified , 08/04/25) Home Medications Home Medications Active Reported B12 Active (Mecobalamin) 1,000 Mcg Tab.chew 1 Tab PO DAILY 30 Days Inderal* (Propranolol HCl) 10 Mg Tablet 1 Tab PO TID Spiriva (Tiotropium Ponce) 18 Mcg Cap.w.dev 1 Cap INH DAILY 30 Days Multivitamin 1 Each Tablet 1 Tab PO DAILY 30 Days Magnesium (Magnesium Oxide) 400 Mg Magnesium Tablet 2 Tab PO TID 30 Days NEEDED Vitamin D (Cholecalciferol) 2,000 Unit Tablet 2 Tab PO DAILY 30 Days Vitamin D (Cholecalciferol) 1,000 Unit Capsule 1 Cap PO DAILY 30 Days Fosamax (Alendronate Sodium) 70 Mg Tablet 1 Tab PO Q7D 28 Days in the morning, at least 30 minutes before the first food, beverage, or medication of the day Tums* (Calcium Carbonate) 300 Mg Tab.chew 1 Tab PO DAILY 30 Days Prilosec Otc (Omeprazole Magnesium) 20 Mg Tablet.dr 1 Tab PO DAILY 30 Days Cozaar* (Losartan Potassium) 25 Mg Tablet 1 Tab PO QAM 30 Days Colchicine 0.6 Mg Capsule 0.5 Cap PO DAILY 30 Days Pravastatin Sodium 20 Mg Tablet 1 Tab PO DAILY 30 Days Ecotrin* (Aspirin) 81 Mg Tablet.dr 1 Tab PO DAILY 30 Days Cresemba (Isavuconazonium Sulfate) 186 Mg Capsule 2 Tab PO QAM Valcyte (Valganciclovir Hcl) 450 Mg Tablet 1 Tab PO Q12H 30 Days Bactrim Ds Tablet (Sulfamethoxazole/Trimethoprim) 800 Mg-160 Mg Tablet 1 Tab PO MWF 10 Days Prograf (Tacrolimus) 1 Mg Capsule 1.5 Cap PO Q12H 30 Days Cellcept (Mycophenolate Mofetil) 250 Mg Capsule 3 Cap PO Q12H 30 Days Prednisone* (Prednisone) 5 Mg Tablet 2 Tab PO DAILY 4 Days Naloxone HCl 4 Mg/Actuation [place] PRN PRN Methadone (Methadone Hcl) 10 Mg/Ml Oral.conc 80 Mg PO DAILY Proventil Nebs* (Albuterol) 2.5 Mg/0.5 Ml Vial.neb 1 Vial NEB Q4H 10 Days Serevent Diskus* (Salmeterol Xinafoate) 50 Mcg Disk.w.dev 1 Puffs INH Q12H 30 Days ZAROXOLYN tablet (Metolazone) 2.5 Mg Tablet 1 Tab PO DAILY PRN 30 Days Potassium Chloride 20 Meq Tablet.er 2 Tab PO QAM 30 Days Bumetanide 1 Mg Tablet 4 Tab PO BID 30 Days Past Medical History Past Medical History History of hepatitis-C which was treated, COPD, chronic pain syndrome on methadone currently. Past Social History Social History Comment Patient lives in transitional living place with multiple other people. She mentioned she quit smoking in 2023, she quit using drugs in 2022 . Her pharmacy is on [facility] [address]. ROS ROS Review of system as mentioned above in HPI rest of the review of system unremarkable Exam Vitals: Vital Signs Date Time Temp Pulse Resp B/P (MAP) Pulse Ox O2 Delivery O2 Flow Rate FiO2 08/04/25 17:27 96.9 73 15 96/71 (79) 95 0 General: General-patient not in any acute distress, alert awake oriented, chronically ill-appearing , looks comfortable , appear older than stated age HEENT-atraumatic normocephalic, neck supple without elevated JVD, no thyromegaly or carotid bruit. No lymphadenopathy bilaterally. Eyes-no icterus or pallor seen in eyes Chest-lung crackles present to auscultation bilaterally over lung base, breathing nonlabored no tachypnea, no wheezing, no crepitation, no crackles. Heart-S1-S2 normal, regular heart rate no murmur Abdomen bowel sounds positive on auscultation, soft nondistended nontender no guarding, no rigidity Skin no active skin rash, signs of chronic hyperpigmentation present over both lower extremity. Healed old midline scar present over chest Neurology-grossly intact, nonfocal alert awake oriented Extremity-trace pedal edema able to move all 4 extremities Psychiatry - patient is not confused or agitated cooperated during physical examination Diagnostic Data Last Recorded Lab Results: 08/04/25 1353 08/04/25 1353 Advance Care Planning Advanced Care plannin - 30 Minutes Additional Plan Patient is 35-year-old female with a history of heart transplantation which was done a year ago. Patient was contacted by nursing staff and they told her to go to the hospital due to elevated creatinine levels. Patient is admitted for acute renal failure, I contacted Dr. Olmos Nephrology specialist and discussed the case with him on phone, he is willing to evaluate the patient likely in a.m.. Patient is started on IV fluids but due to her lung crackles I also ordered echocardiogram in BNP levels. We will continue to monitor patient's labs and vitals closely .As per her home medication list 27 medications is seen medication reconciliation pending. Needs physical therapy evaluation before discharge . Code status discussed with the patient patient wishes full code Time spent in discussing code status 16 minutes. We will do home medication reconciliation once updated in electronic by nursing staff or pharmacist. Further management depending on response to treatment and as per recommendation by Nephrology specialist I will continue to follow patient in a.m. Date of Service: Aug 04, 2025 Billing Provider: LUIS ALBERTO GAMA MD Common Visit Codes: 94680-FCFQBWV INP/OBS CARE (HIGH) Secondary Visit Codes: 58612-GKHDRBIQ CARE PLAN 30 MINUTES LUIS ALBERTO GAMA MD Aug 04, 2025 18:38
[2025-08-04] MEDS: heparin, porcine 5000 units/ml vial SQ SCH (20:00)
[2025-08-04 22:28] VITALS: TEMP 96.9
[2025-08-05 01:08] VITALS: BP 103/62; PULSE 74; RESP 16; O2SAT 96
--- NOTE | 2025-08-05 05:43 | CARDIOLOGY REPORT ---
APPROVED REPORT EXAM: Comprehensive 2D, Doppler, and color-flow Echocardiogram. Patient Location: ER 2 Blood Pressure: 96/71 mmHg Heart Rate: 72 bpm Rhythm: Sinus Rythm Indications Coronary Artery Disease Hx of Heart Transplant ( one year prior) Hx of GEOFFREY Hx of Endocarditis Couture Alterations Dressmaker: Patient Couture Alterations Dressmaker is at [facility] Previous echo: None 2D Dimensions LA Diam 4.1 cm Aortic Root(2D) 3.3 cm LVOT Diameter 2.05 (1.8-2.4cm) CO 4.3 L/min M-Mode Dimensions RVDd 2.47 (2.1-3.2cm) Left Atrium(MM) 4.57 (2.5-4.0cm) IVSd 1.20 (0.7-1.1cm) LVDd 4.31 (4.0-5.6cm) Aortic Root 3.09 (2.2-3.7cm) PWd 1.27 (0.7-1.1cm) Aortic Cusp Exc 1.82 (1.5-2.0cm) IVSs 1.41 cm MV EPSS 0.6 (<0.5cm) LVDs 2.54 (2.0-3.8cm) FS (%) 42 % PWs 1.20 cm ESV(Teich) 21.3 ml LVEF(%) 73 (>50%) Aortic Valve AoV Peak Fausto. 152.3 cm/s AoV VTI 30.0 cm AO Peak GR. 9.3 mmHg AO Mean GR. 4 mmHg LVOT VTI 24.77 cm LVOT Peak Fausto. 120.9 cm/s CECELIA(VTI)/BSA 2.71 cm2/m2 CECELIA (VTI) 2.71 cm2 AV DI 0.82 % Mitral Valve MV E Velocity 107.5 cm/s MV Peak Gr. 7 mmHg MV DECEL TIME 212 ms MV A Velocity 59.8 cm/s MV PHT 56 ms E/A Ratio 1.8 MVA (PHT) 3.93 cm2 MV VMax 135.9 cm/s TDI Medial E' P. V 14.69 cm/s E/Medial E' 7.3 Tricuspid Valve TR P. Velocity 292 cm/s RAP ESTIMATE 10 mmHg TR Peak Gr. 34 mmHg RVSP 44 mmHg Pulmonary Vein S1 Velocity 52.6 cm/s D2 Velocity 59.8 cm/s PVa Velocity 30.6 cm/s PVa Duration 112 msec LEFT VENTRICLE Normal LV size and function. Mild concentric hypertrophy. Overall LVEF is 65-70%. RIGHT VENTRICLE RV is normal size and function. Estimated PA systolic pressure is 44 mmHg. ATRIA Left atrium is mildly dilated. AORTIC VALVE Trileaflet AV appears sclerotic without stenosis or insufficiency. MITRAL VALVE Mild MV annular thickening without stenosis. Trace regurgitation. TRICUSPID VALVE TV appears structurally normal with trace regurgitation. PULMONIC VALVE Normal PV without stenosis, physiologic insufficiency. GREAT VESSELS The aortic root is normal in size. IVC is not well visualized. PERICARDIUM Normal pericardium. No pericardial effusion seen. Other Information Study Quality: Adequate Conclusion Normal LV size and function. Mild concentric hypertrophy. Overall LVEF is 65-70%. RV is normal size and function. Estimated PA systolic pressure is 44 mmHg. Left atrium is mildly dilated. Trileaflet AV appears sclerotic without stenosis or insufficiency. Mild MV annular thickening without stenosis. Trace regurgitation. TV appears structurally normal with trace regurgitation. Normal pericardium. No pericardial effusion seen.
--- NOTE | 2025-08-05 07:18 | CONSULTATION ---
DATE OF CONSULTATION: 08/04/2025 DICTATING PHYSICIAN: Alejandro Olmos MD RENAL AND INTENSIVE CARE CONSULTATION CHIEF COMPLAINT FOR CONSULTATION: Renal insufficiency. HISTORY OF PRESENT ILLNESS: This is a 35-year-old heart transplant recipient from approximately 1 year ago. The bariatric coordinator noticed her creatinine elevated at 4, usually around 1.3. She has felt generally unwell for the past week with no dehydration, dysuria or frequency. PERTINENT MEDICATIONS: Include losartan, methadone, mycophenolate, prednisone 2 tablets p.o. daily of uncertain size, propranolol, Bactrim DS 1 tablet 3 times a week, valacyclovir 1 tablet q.12 hours, and she is on metolazone. Tacrolimus 1.5 mg capsule q.12 hours. No intake and output are reported. Hematocrit is 34.3, white count 4800, BUN 43, creatinine 4.04. Electrolytes are normal. Glucose 121, albumin 3.5. Urinalysis has too numerous to count red cells. I do not know if she is on her period. There is also 5-10 white cells. Chest x-ray is clear, but with a high right diaphragm and rather prominent lizeth. Pressure is a little low at 95/60 with a pulse of 73. For starters, I would like to do a bladder scan pre and post void, a panel of urine spot studies, and CT abdomen and pelvis. I would like to review a urinalysis and most importantly a Prograf level as a very possible culprit. The doses of Bactrim DS and valacyclovir seem normal unless dehydration got her in trouble with that. I look forward to following her with you. Alejandro Olmos MD TID: [id number] RECEIPT: [id number] [facility]INMA[facility]/SEBASTIEN
--- NOTE | 2025-08-05 18:21 | DISCHARGE SUMMARY ---
Discharge Summary Providers to CC ~ Discharge Summary Admission Diagnosis: Acute renal failure, status post heart transplantation Hospital Course DATE OF ADMISSION: August 04, 2025 DATE OF DISCHARGE: August 05, 2025 Patient required transfer to higher level of care/[facility] for further evaluation and management of their disease process. Transferred by ER provider Dr Coffman last night Discharge Diagnosis\Comment: Acute renal failure, history of heart transplantation, acute diastolic congestive heart failure, chronic pain syndrome ( currently on methadone ). Operations\Procedures: None Consultants: Dr Olmos Complications: None Condition on DC: Stable for transfer Discharge Summary: Patient is 35-year-old female with a history of heart transplantation which was done a year ago. Patient was contacted by nursing staff and they told her to go to the hospital due to elevated creatinine levels. Patient states that her creatinine is usually around 1.3. Patient does state that she has had history of acute kidney injury in the past which has resolved. Patient denied any other symptoms to me in visit. As per her home medication list 27 medications is seen medication reconciliation pending. Patient has chronic pain syndrome and currently on methadone. 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 She mentioned that her senior regulatory affairs specialist is in [facility] and currently she does not have any senior regulatory affairs specialist in [facility]. Patient follows with primary care provider in [facility] office. Patient denied use of any tobacco alcohol or any recreational drug. Hospitalist services contacted for admission for acute renal failure. She also mentioned to me that her senior regulatory affairs specialist in [facility] is on zoom visits and they are changing or stopping her medication and they are ordering weekly labs for her. Patient is admitted for acute renal failure, I contacted Dr. Olmos Nephrology specialist and discussed the case with him on phone, he is willing to evaluate the patient likely in a.m.. Patient is started on IV fluids but due to her lung crackles I also ordered echocardiogram and BNP levels. We continued to monitor patient's labs and vitals closely .As per her home medication list 27 medications is seen medication reconciliation pending. Needs physical therapy evaluation before discharge . Code status discussed with the patient patient wishes full code We will do home medication reconciliation once updated in electronic by nursing staff or pharmacist. Further management depending on response to treatment and as per recommendation by Nephrology specialist I will continue to follow patient in a.m. General-patient not in any acute distress, alert awake oriented, chronically ill-appearing , looks comfortable , appear older than stated age HEENT-atraumatic normocephalic, neck supple without elevated JVD, no thyromegaly or carotid bruit. No lymphadenopathy bilaterally. Eyes-no icterus or pallor seen in eyes Chest-lung crackles present to auscultation bilaterally over lung base, breathing nonlabored no tachypnea, no wheezing, no crepitation, no crackles. Heart-S1-S2 normal, regular heart rate no murmur Abdomen bowel sounds positive on auscultation, soft nondistended nontender no guarding, no rigidity Skin no active skin rash, signs of chronic hyperpigmentation present over both lower extremity. Healed old midline scar present over chest Neurology-grossly intact, nonfocal alert awake oriented Extremity-trace pedal edema able to move all 4 extremities Psychiatry - patient is not confused or agitated cooperated during physical examination LAST NIGHT COURSE Additional note by Mendoza Coffman, DO: I took over the care of this patient from previous physician. I reviewed any previous notes available, obtain my own history, review of systems and physical examination was performed by myself. This is a 35-year-old female status post heart transplant, was noted to have GEOFFREY. The previous provider attempted to admit the patient locally, however we have received a call from Dr. Cassandra Mims at [facility] who indicates that patient needs close monitoring of her tacrolimus levels, and that signed out lab that we have here with a not be sufficient and can presents significant danger to patient's well being. She requests we transfer the patient to [facility], she is the accepting physician. Transfer process was initiated. CRITICAL CARE TIME: [45] minutes Treatments/Evaluations: Close monitoring and treatment of unstable vital signs, cardiorespiratory, and neurologic status, while maintaining tight balance of fluid, respiratory, and cardiac interventions. This time includes discussing the case with the patient and the patients family. This time does not include all procedures stated elsewhere in this record. This time also includes reviewing old records, labs and radiological studies. This time includes examining and re- examining the patient. Additionally, this time also includes arranging care with admitting and consulting physicians. Hemodynamics reviewed. Patient remained hemodynamically stable. She is not febrile, not tachycardic, no evidence of hypotension with a her blood pressure somewhat soft. Normal oxygen. Laboratory studies reviewed. There was no leukocytosis, mild anemia of 11.5. Normal platelets of 295. Only 66% neutrophils. ESR slightly elevated at 50. Her chemistry notable for acute kidney injury with a creatinine of 4.04. BNP is elevated at 3700. The patient is positive for methadone on a drug screen. UA is positive for questionable UTI. Renal ultrasound was unremarkable. Chest x-ray showed mild pulmonary congestion. Echocardiogram was obtained, official read is still pending. Patient will require transfer to higher level of care/[facility] for further evaluation and management of their disease process. The case was discussed with [Dr. Cassandra Mims] of the admitting service at [1930] hours and they were made aware of all the patient's active issues, including the above-mentioned history, physical exam findings, and the diagnostic results, as well as our concerns and suspicions, as well as any possible incidental findings and pending test. They agreed with the transfer for higher level of care to their service [facility], and agreed to assume responsibility for the patient's ongoing care and management upon her arrival to the outside hospital. Patient was admitted in [guarded] condition. *Problems/Diagnosis: (1) Acute renal failure Total Time Spent on D/C: > 30 Minutes Date of Service: Aug 05, 2025 Billing Provider: LUIS ALBERTO GAMA MD Common Visit Codes: 94359-KUU/OBS DISCH DAY >30min LUIS ALBERTO GAMA MD Aug 05, 2025 18:14
== END 2025-08-05 01:20 | disposition short-term general hospital (02) ==
LOC: ER 13:09 → ED HOLD 15:55 → UNDOADMIN 15:55 → UNDODISIN 08-05 19:00
DX: R79.9 Abnormal finding of blood chemistry, unspecified (principal); N17.9 Acute kidney failure, unspecified; I50.9 Heart failure, unspecified; Z87.19 Personal history of other diseases of the digestive system; Z79.899 Other long term (current) drug therapy
CPT/HCPCS: 36415; 71045; 76770; 80048; 80305; 81001; 81025; 82570; 83880; 84133; 84145; 84156; 84300; 84540; 85025; 85651; 87088; 93005; 93306; 96360; 96361; 99291; J7030; 99285; G0378

== ENCOUNTER 2025-09-28 17:43 | Emergency (ER) | payer MEDICAID ==
[~2025-09-28] VITALS: Ht 170.2 cm; Wt 87.2 kg
[~2025-09-28 17:43] MED LIST changes: -VALG450T13 PO; +[UNRECOGNIZED DRUG - CODE] PO
--- NOTE | 2025-09-28 18:07 | Physician Documentation ---
History of Present Illness ~ Chief Complaint: See Chief Complaint Stated Complaint: NEUTROPENIC Time Seen by MD: 18:05 Primary Medical Doctor: raheem VILLARREAL Patient presents to the emergency room with bilateral lower leg extremity redness swelling right greater than left. History of cellulitis. Patient has history of drug-induced CHF requiring heart transplant at [facility] by Dr. Rushing in 2023. She has taken immunosuppressive. She states that over the last three days in addition to having her legs worsen she has also felt significantly drained of energy. Denies cough cold congestion symptoms. Tetanus witin 5 years: Yes Medication Reconciliation Allergies: Coded Allergies: No Known Allergies (Unverified , 09/28/25) Scheduled Albuterol Sulfate Nebs* (Proventil Nebs*), 1 VIAL NEB Q4H, (Reported) Alendronate Sodium (Fosamax), 1 TAB PO Q7D, (Reported) Apixaban (Eliquis), 5 MG PO BID, (Reported) Atovaquone (Atovaquone), 10 ML PO DAILY, (Reported) Bumetanide (Bumetanide), 1 TAB PO BID, (Reported) Cholecalciferol (Vitamin D), 1 CAP PO DAILY, (Reported) Everolimus (Zortress), 1 TAB PO Q12H, (Reported) Fluconazole (Diflucan), 1 TAB PO DAILY, (Reported) Losartan Potassium* (Cozaar*), 1 TAB PO QAM, (Reported) Magnesium Oxide (Magnesium), 2 TAB PO TID, (Reported) Methadone Hcl (Methadone), 80 MG PO DAILY, (Reported) Multivitamin (Multivitamin), 1 TAB PO DAILY, (Reported) Norethindrone Acetate (Norethindrone Acetate), 1 TAB PO DAILY, (Reported) Omeprazole Magnesium (Prilosec Otc), 1 TAB PO DAILY, (Reported) Pravastatin Sodium (Pravastatin Sodium), 1 TAB PO DAILY, (Reported) Propranolol Hcl* (Inderal*), 1 TAB PO TID, (Reported) Salmeterol Xinafoate* (Serevent Diskus*), 1 PUFFS INH Q12H, (Reported) Tacrolimus Anhydrous (Tacrolimus), 0.5 MG PO DAILY, (Reported) Tiotropium [place] (Spiriva), 1 CAP INH DAILY, (Reported) Scheduled PRN Naloxone HCl (Naloxone HCl), PRN PRN for resp rate < 8/min or SBP < 90, (Reported) Miscellaneous Medications Ezetimibe (Zetia), 10 MG PO, (Reported) Discontinued Medications Aspirin (Ecotrin*), 1 TAB PO DAILY, (Reported) Discontinued Reason: patient no longer taking Calcium Carbonate* (Tums*), 1 TAB PO DAILY, (Reported) Discontinued Reason: patient no longer taking Cholecalciferol (Vitamin D), 2 TAB PO DAILY, (Reported) Discontinued Reason: patient no longer taking Colchicine (Colchicine), 0.5 CAP PO DAILY, (Reported) Discontinued Reason: patient no longer taking Isavuconazonium Sulfate (Cresemba), 2 TAB PO QAM, (Reported) Discontinued Reason: patient no longer taking Mecobalamin (B12 Active), 1 TAB PO DAILY, (Reported) Discontinued Reason: patient no longer taking Metolazone (ZAROXOLYN tablet), 1 TAB PO DAILY PRN for Per Protocol, (Reported) Discontinued Reason: patient no longer taking Mycophenolate Mofetil (Cellcept), 3 CAP PO Q12H, (Reported) Discontinued Reason: patient no longer taking Potassium Chloride (Potassium Chloride), 2 TAB PO QAM, (Reported) Discontinued Reason: patient no longer taking Prednisone* (Prednisone*), 2 TAB PO DAILY, (Reported) Discontinued Reason: patient no longer taking Sulfamethoxazole/Trimethoprim (Bactrim Ds Tablet), 1 TAB PO MWF, (Reported) Discontinued Reason: patient no longer taking Tacrolimus (Prograf), 1.5 CAP PO Q12H, (Reported) Discontinued Reason: Prescription changed Valganciclovir Hcl (Valcyte), 1 TAB PO Q12H, (Reported) Discontinued Reason: patient no longer taking Past Medical History Past Medical History: Congestive Heart Failure, Endocarditis, Hepatitis C Past Surgical History: no surgical history Alcohol Use: None Drug Use: none Occupation: employed Review of Systems ROS All review of systems negative except as per HPI Physical Exam Vital Signs: Temperature: 95.6, Source: Temporal, Heart Rate: 84, Respiratory Rate: 15, BP: 134/74, Pulse Oximetry: 95, Weight: 87.200 Physical Exam General: Patient is awake, alert, oriented x4 in no acute distress Head: Normocephalic and atraumatic. Eyes: Conjunctival normal. EOMI. PERRL. ENT: Mucous membranes moist. Neck: Supple, trachea is midline. Chest: Clear to auscultation bilaterally without rales, rhonchi, or wheezes. There is no accessory muscle use or retractions. Cardiac: RRR without murmurs, gallops, or rubs. Abd: Soft, nondistended, nontender, with normoactive bowel sounds. No guarding, rebound, or rigidity. Extremities: Cellulitis noted to bilateral lower extremities right worse than left. Right leg with skin breakdown to the medial aspect of ankle measuring a proximally 8 cm x 5 cm. Progress Progress Note Patient has been accepted at [facility] but we would not have a bed until the morning Results/Orders Results/Orders Orders - VICTOR HUGO VARGAS MD Chest,Single View (09/28/25 19:10) Completed Orders - VICTOR HUGO VARGAS MD Chest,Single View (09/28/25 19:10) Apixaban Tablet (Eliquis Tablet) (09/28/25 21:15) Tacrolimus Anhydrous Cap (Prograf Capsul (09/28/25 21:25) Vital Signs 09/29/25 09/29/25 09/29/25 09/29/25 06:00 07:00 08:00 09:36 Pulse 70 73 73 Resp 16 20 16 16 B/P (MAP) 110/66 (81) 121/83 (96) 113/81 (92) Pulse Ox 91 95 91 O2 Flow Rate 0 0 09/29/25 09/29/25 09/29/25 09/29/25 09:36 11:34 12:30 13:30 Pulse 76 78 72 76 Resp 16 16 16 18 B/P (MAP) 123/85 (98) 111/72 (85) 106/64 (78) 131/90 (104) Pulse Ox 91 94 94 92 O2 Flow Rate 0 0 0 09/29/25 09/29/25 09/29/25 09/29/25 14:30 15:30 16:32 16:55 Pulse 80 68 70 67 Resp 16 16 20 16 B/P (MAP) 109/71 (84) 100/62 (75) 109/71 (84) Pulse Ox 94 98 93 93 O2 Delivery Room Air* O2 Flow Rate 0 0 0 0 FiO2 21 09/29/25 09/30/25 09/30/256/25 18:19 02:36 05:46 06:20 Temp 97.4 Pulse 78 70 69 Resp 16 20 24 18 B/P (MAP) 100/66 (77) 111/75 (87) 97/64 (75) Pulse Ox 97 94 93 O2 Flow Rate 0 0 0 09/30/25 09/30/25 09/30/25 06:20 09:00 09:42 Temp 97.4 97.4 97.8 Pulse 67 69 78 Resp 17 18 16 B/P (MAP) 116/71 (86) 113/76 (88) 100/68 Pulse Ox 95 96 96 O2 Flow Rate 0 0 Laboratory Tests Test 09/28/25 18:09 White Blood Count 1.5 L Red Blood Count 2.93 L Hemoglobin 8.4 L Hematocrit 25.3 L Mean Corpuscular Volume 86.4 Mean Corpuscular Hemoglobin 28.7 Mean Corpuscular Hemoglobin Concent 33.2 Red Cell Distribution Width 15.1 H Platelet Count 178 Mean Platelet Volume 8.3 Neutrophils (%) (Auto) 52.8 Lymphocytes (%) (Auto) 30.9 Monocytes (%) (Auto) 11.2 Eosinophils (%) (Auto) 3.1 Basophils (%) (Auto) 2.0 H Neutrophils # (Auto) 0.8 L Lymphocytes # (Auto) 0.5 L Monocytes # (Auto) 0.2 Eosinophils # (Auto) 0.0 Basophils # (Auto) 0.0 CBC Comment Differential Total Cells Counted 100 Neutrophils % (Manual) 51.0 Lymphocytes % (Manual) 35.0 Monocytes % (Manual) 11.0 Eosinophils % (Manual) 3.0 Platelet Estimate Normal Red Blood Cell Morphology Normal Basophilic Stippling Erythrocyte Sedimentation Rate 87 H Prothrombin Time 12.6 H INR International Normalized Ratio 1.3 Activated Partial Thromboplast Time 36 H Coagulation Comments Sodium Level 141 Potassium Level 4.3 Chloride Level 107 Carbon Dioxide Level 27.6 Anion Gap 6 L Blood Urea Nitrogen 22 H Creatinine 2.28 H Estimated GFR/1.73 m2 24 BUN/Creatinine Ratio 9.6 L Glucose Level 120 H Lactic Acid Level 1.2 Calcium Level 8.9 Magnesium Level 2.1 Total Bilirubin 0.5 Aspartate Amino Transf (AST/SGOT) 33 Alanine Aminotransferase (ALT/SGPT) 24 Alkaline Phosphatase 143 H Troponin I High Sensitivity 18 C-Reactive Protein 6.30 H Pro-B-Type Natriuretic Peptide 27338 H Total Protein 7.6 Albumin 3.6 Globulin 4.0 Albumin/Globulin Ratio 0.9 L Chemistry Comments Microbiology Date/Time Source Procedure Growth Status 09/28/25 18:44 Blood Arm Left Blood Culture - Preliminary NO GROWTH AFTER 4 DAYS Resulted EKG/XRAY/CT/US/VASC/MRI EKG : Additional Comment EKG interpreted by myself shows time of 18 15, rate 83, sinus rhythm, normal axis, no ST changes Medical Decision Making Additional information obtaine: old records Findings Patient presents to the emergency room for evaluation of bilateral lower extremity cellulitis as per HPI. Antibiotics initiated as well as IV fluids. Patient that has Cardiac transplant patient's and given her infection along with her immunocompromised state [facility] has been consulted. Given patient's complex medical history [facility] has accepted and we are arranging for transfer General Diff Dx:Considerations: Include: Abrasion, Contusion, Fracture, Hematoma, Laceration, Malunion, Neurovascular injury, Open fracture, Sprain, Ulcer, Other Knee Diff Dx:Considerations: Include: Abrasion, Arthritis, Contusion, DJD, Fracture-femur, Fracture-fibula, Fracture-patella, Fracture-tibia, Gout, Hematoma, Laceration, Meniscus injury, Neurovascular injury, Open fracture, Rheumatoid arthritis, Septic, Sprain, Sprain-MCL, Sprain-LCL, Sprain-ACL, Sprain-PCL, Other Ankle Diff Dx:Considerations: Include: Abrasion, Arthritis, Contusion, DJD, Fracture-metatarsal, Fracture-fibula, Fracture-tarsal, Fracture-tibia, Gout, Hematoma, Laceration, Malunion, Neurovascular injury, Nonunion, Open fracture, Osteomyelitis, Rheumatoid arthritis, Sprain, Septic, Ulcer, Other Foot Diff Dx:Considerations: Include: Abrasion, Arthritis, Cellulitis, Contusion, Dislocation, DJD, Fracture-metatarsal, Fracture-phalynx, Fracture- tarsal, Gout, Hematoma, Ingrown toenail, Laceration, Malunion, Neurovascular injury, Open fracture, Paronychia, Puncture, Rheumatoid, Sprain, Septic, Subungual hematoma, Ulcer, Other Toe Diff Dx:Considerations: Include: Abrasion, Cellulitis, Contusion, Dislocation, Felon, Fracture, Hematoma, Laceration, Neurovascular injury, Open fracture, Paronychia, Subungual hematoma, Other Departure Disposition: 51 HOSPICE/MEDICAL FACILITY Impression: Primary Impression: Wound cellulitis Condition: Guarded Referrals: NO PRIMARY CARE PROVIDER (PCP) Signature Scribe Signature: No scribe Attestation: The note accurately reflects work and decisions made by me.Victor Hugo Vargas MD 10/03/25 03:49 VICTOR HUGO VARGAS MD Sep 28, 2025 18:07
--- NOTE | 2025-09-28 18:18 | ELECTROCARDIOGRAPH REPORT ---
[facility] Test Date: 2025-09-28 Test Time: 18:15:28 Pat Name: KALE BLOUNT Department: EMERGENCY ROOM Patient ID: [id number] Room: Gender: F [address] Researcher: HOLLY : 1990 Requested By: WAYLON VILLARREAL Order Number: [id number] Reading MD: Dr. KIANNA Garland Measurements Intervals [place] Rate: 83 P: 57 OK: 152 QRS: 68 QRSD: 93 T: 39 QT: 365 QTc: 429 Interpretive Statements Sinus rhythm Borderline T abnormalities, anterior leads Electronically Signed On 09-29-2025 16:53:[address] KIANNA Garland Please click the below link to view image of tracing.
[2025-09-28 18:32] LABS: MEAN PLATELET VOLUME 8.3 FL (7.4-10.4); RED CELL DISTRIBUTION WIDTH 15.1 % (11.5-14.5)
[2025-09-28 18:40] LABS: CREATININE 2.28 MG/DL (0.40-0.90); TOTAL CARBON DIOXIDE 27.6 MMOL/L (24-32); eCRCL 33 ML/MIN; eGFR 24 ML/MIN
[2025-09-28] MEDS: piperacillin/tazo 4.5gm/100ml 100 ML IV ONE (18:41)
[2025-09-28 18:48] LABS: PRO BRAIN NATRIURETIC PEPTIDE 17583 PG/ML (0-125)
[2025-09-28 19:00] LABS: APTT 36 SECONDS (22-32); INR 1.3 INR
--- NOTE | 2025-09-28 19:34 | RADIOLOGY REPORT ---
EXAM: DI CHEST,SINGLE VIEW TECHNIQUE: Single frontal chest radiograph CLINICAL HISTORY: sob COMPARISON: DI CHEST,SINGLE VIEW on DOS: 08/04/25, DI CHEST,SINGLE VIEW on DOS: 04/07/25, DI CHEST,SINGLE VIEW on DOS: 03/19/25, DI CHEST,SINGLE VIEW on DOS: 03/08/25, DI CHEST,SINGLE VIEW on DOS: 12/09/24 FINDINGS/IMPRESSION: Mild prominence of the interstitial markings. The cardiomediastinal silhouette is unchanged. No pleural effusion or pneumothorax. No acute osseous abnormality. Median sternotomy changes are noted.
[2025-09-28] MEDS: vancomycin/NS 1 GM ADD-VANTAGE 250 ML IV ONE (19:45)
[2025-09-28 19:47] LABS: EOSINOPHILS % (MANUAL) 3.0 % (0-6); LYMPHOCYTES % (MANUAL) 35.0 % (21-51); MONOCYTES % (MANUAL) 11.0 % (2-12); NEUTROPHILS % (MANUAL) 51.0 % (42-75)
[2025-09-28 19:48] LABS: PLATELET ESTIMATE NORMAL
[2025-09-28] MEDS ORDERED: tacrolimus anhydrous 1mg capsule PO ONE (21:15)
[2025-09-28] MEDS ORDERED: EZET10TA6 PO (21:38)
[2025-09-28] MEDS ORDERED: APIX5TAB3 PO (21:39)
[2025-09-28] MEDS ORDERED: ATOV750O32 PO (21:43)
[2025-09-28] MEDS ORDERED: FLUC200T2 PO (21:44)
[2025-09-28] MEDS ORDERED: EVER0.5T PO (21:44)
[2025-09-28] MEDS ORDERED: NORE5TAB PO (21:46)
[2025-09-28] MEDS: tacrolimus anhydrous 0.5mg capsule PO ONE (22:00)
[2025-09-29] MEDS ORDERED: ATOVAQUONE 750 MG/5 ML ORAL.SUSP PO SCH ×3 (09:42→10:35)
[2025-09-29] MEDS ORDERED: ipratropium 0.5 MG/2.5ML nebule NEB PRN (09:48)
[2025-09-29] MEDS ORDERED: albuterol 2.5 MG/3 ML nebule NEB PRN ×2 (09:49→10:55)
[2025-09-29] MEDS: piperacillin/tazo 4.5gm/100ml 100 ML IV SCH (11:35)
[2025-09-29] MEDS: multivitamins, therapeutics tablet PO SCH (11:38)
[2025-09-29] MEDS: propranolol 10mg tablet PO SCH (11:39)
[2025-09-29] MEDS: pantoprazole 40mg Tablet.DR PO SCH (11:40)
[2025-09-29] MEDS: cholecalciferol (vitamin D3) 1,000 unit (25mcg) tablet PO SCH (11:40)
[2025-09-29] MEDS: tacrolimus anhydrous 0.5mg capsule PO SCH ×2 (11:43→20:00)
[2025-09-29] MEDS: ATOVAQUONE 750 MG/5 ML ORAL.SUSP PO SCH (11:44)
[2025-09-29] MEDS ORDERED: TACR0.5C3 PO (11:53)
[2025-09-29 16:32] VITALS: PULSE 70; RESP 20; O2SAT 93
[2025-09-30] MEDS: ATOVAQUONE 750 MG/5 ML ORAL.SUSP PO SCH (09:15)
[2025-09-30 09:42] VITALS: BP 100/68; PULSE 78; RESP 16; TEMP 97.8; O2SAT 96
[2025-10-02] MEDS ORDERED: methadone 10mg tablet PO SCH (08:00)
== END 2025-09-30 10:08 | disposition short-term general hospital (02) ==
LOC: ER 17:44
DX: L03.116 Cellulitis of left lower limb (principal); L03.115 Cellulitis of right lower limb; R06.02 Shortness of breath; Z88.3 Allergy status to other anti-infective agents; Z86.19 Personal history of other infectious and parasitic diseases; Z79.899 Other long term (current) drug therapy
CPT/HCPCS: 36415; 71045; 80053; 83605; 83735; 83880; 84484; 85007; 85025; 85610; 85651; 85730; 86140; 87040; 93005; 96365; 96366; 96367; 99285; A6222; J2543; J3373; J7507; A6258; A6449